=== PATIENT | female | born 1995 | race Caucasian/White ===

== ENCOUNTER → 2018-02-18 09:02 | Outpatient (CLI) | payer MEDICAID, SELFPAY ==
[2018-02-18 10:15] LABS: HCT 30.4 % (36.0-46.0); HGB 10.3 g/dL (12.0-15.5); Mean Corp. HGB Concentration 33.9 g/dL (32.0-36.0); Mean Corpuscular Hemoglobin 32.4 pg (27.0-33.0); Mean Corpuscular Volume 95.6 fL (80-95); Mean Platelet Volume 9.7 fL (8.0-11.0); Platelet Count 218 x1000/uL (130-400); RBC 3.18 m/cumm (4.00-5.20); RBC Distribution Width 12.7 % (11.7-14.6)
[2018-02-18 10:23] LABS: Glucose,1 Hr (Glucola) 84 mg/dL (80-140)
== END ==
PROVIDERS: Visit Provider Advanced Practice Midwife
DX: Z3A.28 28 weeks gestation of pregnancy (principal)
CPT/HCPCS: 36415; 82950; 85027

== ENCOUNTER → 2018-03-04 01:45 | Outpatient (CLI) | payer MEDICAID, SELFPAY ==
--- NOTE | 2018-03-04 10:16 | DI.REPORT_ITS ---
SYMPTOM/DIAGNOSIS: Z34.93 SIZE INCONSISTENT WITH DATES OB ULTRASOUND: Comparison is made with 21 January 2018. The fetus is in breech position. The placenta is anterior. The biometric measurements correspond to 30 weeks 6 days consistent with previous dating. The estimated weight is 1624 grams, corresponding to the 37th percentile. The amniotic fluid index appears normal at 11.6 IMPRESSION: size and weight are within normal limits. Many abnormalities cannot be diagnosed. A normal exam does not exclude a congenital anomaly. Radiology No. [id number] LMP: Exam Date:03/04/18 [facility] wks days on EDC ([facility]) 05/08/18 Confirmed: HISTORY: SIZE LESS THAN DATES ---- PREDICTED GESTATIONAL AGE NUMBER 31- weeks with a range of 30- week to 32- weeks. 1 Determined by_XX__1STUS___LMP___HISTORY Info. pertaining to fetus # PLACENTA PRESENTATION Grade II Cephalic___ Anterior_X__Posterior___ Breech__X__ Right Left Transverse(head right___ Fundal___Low-lying___Previa___ Transverse(head left___ Varying BIOMETRY AMNIOTIC FLUID BPD: 77mm 30 +5 weeks Normal HC: 288 mm 31 +4 weeks AC: 265 mm 30 +4 weeks FL:59 mm 30 +4 weeks AMNIOTIC FLUID INDEX >26 WK CRL: mm weeks Cisterna Magna: mm CI: 80 RUQ:_2.7 LUQ____3.8____ Cerebellum: cm EFW: 56584 grams 37% Percentile RLQ:_1.5 LLQ__3.6 Total:__11.6__cms Composite AGE= 30 +6 wks EDC by US___05/07/18 BIOPHYSICAL PROFILE ANATOMY IDENTIFIED SCORE 0/2 Heart: 4-Chamber___Rate:BPM_150____ LVOT: RVOT: Amniotic Fluid(>2cms)____ Stomach: Kidneys: Respirations (>30 secs) Bladder: Post. Fossa: Body Flex/Extension 3 vessel cord: Ventricles: cord insertion: Lips:____ Extremity Flex/Extension spinal morphology: Nose: Total Score= Palate: NS=not seen
== END ==
PROVIDERS: Visit Provider Advanced Practice Midwife
DX: O26.843 Uterine size-date discrepancy, third trimester (principal); Z34.93 Encounter for supervision of normal pregnancy, unspecified, third trimester
CPT/HCPCS: 76816

== ENCOUNTER 2018-03-25 01:00 | Outpatient (CLI) | payer MEDICAID, SELFPAY ==
--- NOTE | 2018-03-25 10:53 | DI.US_ITS ---
Many abnormalities cannot be diagnosed. A normal exam does not exclude a congenital anomaly. Radiology No. LMP: Exam Date: [facility] wks days on EDC ([facility]) 05/08/18 Confirmed: HISTORY: UTERINE SIZE DISCREPANCY, 026.843 ---- PREDICTED GESTATIONAL AGE NUMBER 33.5 weeks with a range of 32.5 week to 34.5 weeks. 1 Determined by_X__1STUS___LMP___HISTORY Info. pertaining to fetus # PLACENTA PRESENTATION Grade II Cephalic__X_ Anterior__X_Posterior___ Breech____ Right Left Transverse(head right___ Fundal___Low-lying___Previa___ Transverse(head left___ Varying BIOMETRY AMNIOTIC FLUID BPD: 86 mm 34.3 weeks Normal HC: 308 mm 34.2 weeks AC: 293 mm 33.2 weeks FL: 64 mm 33.1 weeks AMNIOTIC FLUID INDEX >26 WK CRL: mm weeks Cisterna Magna: mm CI: 82 RUQ:__6.43____LUQ__4.43 Cerebellum: cm EFW: 2204 grams 35TH Percentile RLQ:__2.18____LLQ__2L81____ Total:____16.3____cms Composite AGE= 33.6 wks EDC by US___05/07/18 BIOPHYSICAL PROFILE ANATOMY IDENTIFIED SCORE 0/2 Heart: 4-Chamber__X_Rate:BPM__136___ LVOT: RVOT: Amniotic Fluid(>2cms)____ Stomach: X__ Kidneys:____X___ Respirations (>30 secs) Bladder: X___ Post. Fossa: Body Flex/Extension 3 vessel cord: Ventricles: cord insertion: Lips:____ Extremity Flex/Extension spinal morphology: Nose: Total Score= Palate: NS=not seen Comparison is made with 03/04/18. The fetus is in cephalic position. The placenta is anterior. The biometric measurements correspond to 33 weeks 6 days , consistent with previous dating. The estimated weight is 2204 grams corresponding to the 35th percentile. The placenta is not significantly changed from the previous exam. The amniotic fluid index appears normal at 16.3. IMPRESSION: size and weight are within normal limits for dates.
== END 2018-03-25 01:20 ==
PROVIDERS: Visit Provider Advanced Practice Midwife
DX: O26.843 Uterine size-date discrepancy, third trimester (principal); Z34.83 Encounter for supervision of other normal pregnancy, third trimester
CPT/HCPCS: 76816

== ENCOUNTER 2018-04-09 14:47 | Outpatient (REF) | payer MEDICAID, SELFPAY | END 2018-04-09 15:07 | LOC: LBN 14:47 | PROVIDERS: PCP Nurse Practitioner Adult Health; Visit Provider Advanced Practice Midwife | DX: Z34.93 Encounter for supervision of normal pregnancy, unspecified, third trimester (principal); Z36.85 Encounter for antenatal screening for Streptococcus B | CPT/HCPCS: 87081 ==

== ENCOUNTER 2018-04-15 11:18 | Observation (INO) | payer MEDICAID, SELFPAY | END 2018-04-15 11:47 | LOC: OBS 11:32 | PROVIDERS: Admitting Provider Midwife; PCP Nurse Practitioner Adult Health; Visit Provider Midwife | DX: R69 Illness, unspecified (principal) ==

== ENCOUNTER 2018-04-15 11:18 | Inpatient (IN) | payer MEDICAID, SELFPAY ==
[2018-04-15 12:50] LABS: HCT 32.7 % (36.0-46.0); HGB 11.3 g/dL (12.0-15.5); Mean Corp. HGB Concentration 34.6 g/dL (32.0-36.0); Mean Corpuscular Hemoglobin 33.1 pg (27.0-33.0); Mean Corpuscular Volume 95.9 fL (80-95); Mean Platelet Volume 9.9 fL (8.0-11.0); Platelet Count 228 x1000/uL (130-400); RBC 3.41 m/cumm (4.00-5.20); RBC Distribution Width 13.3 % (11.7-14.6); White Blood Cell Count 13.05 k/cumm (4.4-10.8)
[2018-04-15] MEDS: Normal Saline Flush 10 ML SYR IVP (14:03)
[2018-04-15] MEDS: Hamamelis Leaf/Glycerin 100 EACH BOX PR (18:57)
[2018-04-15] MEDS: Ibuprofen 600 MG TAB PO (19:45)
[2018-04-15] MEDS: Acetaminophen 325 MG TAB 650 MG PO (19:46)
[2018-04-16] MEDS: Acetaminophen 325 MG TAB 650 MG PO ×3 (06:43→20:29)
[2018-04-16] MEDS: Ibuprofen 600 MG TAB PO ×2 (06:44→20:30)
[2018-04-16 07:24] LABS: HCT 30.8 % (36.0-46.0); HGB 10.4 g/dL (12.0-15.5); Mean Corp. HGB Concentration 33.8 g/dL (32.0-36.0); Mean Corpuscular Hemoglobin 32.6 pg (27.0-33.0); Mean Corpuscular Volume 96.6 fL (80-95); Mean Platelet Volume 10.3 fL (8.0-11.0); Platelet Count 213 x1000/uL (130-400); RBC 3.19 m/cumm (4.00-5.20); RBC Distribution Width 13.1 % (11.7-14.6); White Blood Cell Count 10.19 k/cumm (4.4-10.8)
[2018-04-17] MEDS: Acetaminophen 325 MG TAB 650 MG PO ×2 (13:45→21:45)
[2018-04-18] MEDS: Ibuprofen 600 MG TAB (16:41)
== END 2018-04-18 16:45 | disposition home or self-care (01) | DRG 806 ==
PROVIDERS: Admitting Provider Midwife; PCP Nurse Practitioner Adult Health; Visit Provider Midwife
DX: O60.14X0 Preterm labor third trimester with preterm delivery third trimester, not applicable or unspecified (principal); O99.324 Drug use complicating childbirth; Z37.0 Single live birth; Z3A.36 36 weeks gestation of pregnancy; Z62.21 Child in welfare custody; Z62.810 Personal history of physical and sexual abuse in childhood; O99.334 Smoking (tobacco) complicating childbirth; F17.210 Nicotine dependence, cigarettes, uncomplicated; F12.90 Cannabis use, unspecified, uncomplicated; O99.344 Other mental disorders complicating childbirth; F32.9 Major depressive disorder, single episode, unspecified; Z75.2 Other waiting period for investigation and treatment; Z23 Encounter for immunization
CPT/HCPCS: 36415; 85027; 86850; 86900; 86901

== ENCOUNTER 2018-05-27 15:55 | Outpatient (REF) | payer MEDICAID, SELFPAY ==
--- NOTE | 2018-05-27 14:00 | PAPFT_PTH ---
PATIENT: Fadia Meeks LOC: [facility] U#:[id number] AGE/SX: 23/F ROOM: RE05/27/[address]: Jenna Richardson MD : 1995 BED: DIS: 05/27/2018 SPEC #: [id number] RECD: 05/27/18 17:33 STATUS: CLAUDIA REElisabeth #: [id number] PIPO: 05/27/18 14:[address]: Jenna Richardson DEPT: [facility] Cytology RECD BY: Olivia Page ENTERED: 05/27/18 17:34 SP TYPE: PAPFT K[place]LEY DR: Nilsa Villalpando APRN Tissues: 1 - CX/ENDOCX FOR PAP SMEARS Procedures: PAP THIN PREP/UVM Screening HPV DNA PROBE Comments: [id number]
== END 2018-05-27 16:15 ==
LOC: LBN 15:55
PROVIDERS: PCP Nurse Practitioner Adult Health; Visit Provider Obstetrics & Gynecology
DX: Z12.4 Encounter for screening for malignant neoplasm of cervix (principal)
CPT/HCPCS: 88142; 87624

== ENCOUNTER 2018-07-18 11:12 | Outpatient (CLI) | payer MEDICAID, SELFPAY ==
[2018-07-18 12:07] LABS: HCT 35.3 % (36.0-46.0); HGB 11.8 g/dL (12.0-15.5)
[2018-07-18 14:20] LABS: HCG Qual (Serum) Negative
== END 2018-07-18 11:32 ==
PROVIDERS: Visit Provider Obstetrics & Gynecology
DX: Z30.2 Encounter for sterilization (principal); Z01.818 Encounter for other preprocedural examination
CPT/HCPCS: 36415; 86850; 86900; 86901; 84703; 85014; 85018

== ENCOUNTER 2018-07-24 12:03 | Day surgery (SDC) | payer MEDICAID, SELFPAY ==
[2018-07-24] VITALS (7 sets, daily range): BP systolic 107–127; BP diastolic 58–78; PULSE 75–85; RESP 11–18; TEMP 35.8–36.8; O2SAT 100
[2018-07-24] MEDS: Lactated Ringers 1,000 ML 125 ML IV ×2 (12:46→14:36)
[2018-07-24] MEDS: Bupivacaine 0.25% Pres-Free 30 ML VIAL (14:03)
[2018-07-24] MEDS: fentaNYL 100 MCG/2 ML VIAL IVP ×2 (14:20→14:30)
--- NOTE | 2018-07-24 16:29 | ROE_ITS ---
DATE OF PROCEDURE: July 24, 2018 PREOPERATIVE DIAGNOSIS: Desires permanent sterilization. POSTOPERATIVE DIAGNOSIS: Desired permanent sterilization. PROCEDURE: Laparoscopic-assisted bilateral tubal ligation with Falope Rings. SURGEON: Jenna Richardson M.D. FINAL CANOE INSPECTOR: Prema Aguirre M.D. ANESTHESIA: General. COMPLICATIONS: None. ESTIMATED BLOOD LOSS: <10 cc URINE OUTPUT: <10 cc INTRAOPERATIVE FLUIDS: 750 cc of LR. FINDINGS: Bilateral ligated tubes with Falope Rings at end of procedure. She had normal ovaries kogn aterally, normal uterus, normal liver and gallbladder. PROCEDURE: The patient was taken to the Operating Room where she was properly identified. She was t hen placed on the operating table in the dorsal supine position and general anesthesia was induced wi thout difficulty. She was then placed in the dorsal lithotomy position and prepped and draped in a n ormal sterile fashion. A formal time-out procedure was then performed confirming patient and procedu re. Attention was then turned draining the bladder with a 16 [place]ian catheter. There was a minimal amount of urine output as the patient had urinated prior to coming into the Operating Room. A bivalve speculum was placed. The cervix was visualized and grasped on the anterior lip with a sing le-tooth tenaculum and the uterine manipulator was advanced without difficulty. The surgeon changed her gloves and attention was then turned to the abdomen where an infraumbilical i njection of quarter-strength Marcaine plain was made. A 5-mm incision was made intra-umbilically. A Veress needle was placed into the intraperitoneal cavity which was confirmed by a fluid-filled syrin ge and a drop in pressure. The abdomen was then insufflated with CO2 gas. The Veress needle was rem nimesh and a 5-mm port was advanced under direct visualization. A second 12-mm port was placed suprapu bically by first identifying the bladder which was well away from the port site. Approximately 2 cm above the symphysis pubis the area was injected with quarter-strength Marcaine. A 12-mm subcuticular incision was made and a 12-mm port was advanced under direct visualization. Thorough inspection of the pelvis ensued with the above findings. The left tube was identified, followed out to the fimbria baylee end, and approximately 3 cm from the cornual region the Falope Ring was advanced circumferentiall y around the tube without difficulty. Hemostasis was confirmed. The applicator was reloaded and att ention was then turned to the right fallopian tube. Again it was identified by following out to the fimbriated end. Approximately 3 cm from the cornual region the tube was grasped with pickups and the Falope Ring advanced circumferentially around the tube without difficulty. Hemostasis was reestabli shed and the abdomen was desufflated of CO2 gas. The ports were removed. The 12-mm suprapubic fascia was closed with #0 Vicryl in a adbegm-ab-ubodh fashion and the skin was c losed with #4-0 Vicryl and 3 interrupted sutures of #4-0 Vicryl. The infraumbilical 5-mm incision wa s closed with #4-0 Vicryl in a subcuticular fashion. The Durofix glue was applied to both the incisi ons and then a wide Steri-Strip was applied as well. Sponge, lap, needle, and instrument count were correct x2. The patient was taken to the Recovery Room in stable condition.
== END 2018-07-24 16:20 | disposition home or self-care (01) ==
PROVIDERS: Visit Provider Obstetrics & Gynecology
PROC: (CPT 58670; principal; 2018-07-24 13:00)
DX: Z30.2 Encounter for sterilization (principal); F17.210 Nicotine dependence, cigarettes, uncomplicated
CPT/HCPCS: 58671; J0131; J1100; J1885; J2405; J3010

== ENCOUNTER 2018-08-25 09:24 | Emergency (ER) | payer MEDICAID, SELFPAY ==
[2018-08-25 09:27] VITALS: BP 104/57; PULSE 100; RESP 20; TEMP 36.5; O2SAT 100
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
== END 2018-08-25 09:48 | disposition home or self-care (01) ==
PROVIDERS: Emergency Provider Emergency Medicine
DX: H66.92 Otitis media, unspecified, left ear (principal); F17.210 Nicotine dependence, cigarettes, uncomplicated
CPT/HCPCS: 99283

== ENCOUNTER 2018-09-18 16:39 | Outpatient (CLI) | payer MEDICAID, SELFPAY ==
[2018-09-18 18:25] LABS: HCG Quant, Pregnancy 798 mIU/mL (1-3)
== END 2018-09-18 16:59 ==
PROVIDERS: Visit Provider Obstetrics & Gynecology
DX: Z32.01 Encounter for pregnancy test, result positive (principal)
CPT/HCPCS: 36415; 84702

== ENCOUNTER 2018-09-22 08:36 | Outpatient (CLI) | payer MEDICAID, SELFPAY ==
[2018-09-22 10:56] LABS: HCG Qual (Serum) Positive
[2018-09-22 13:55] LABS: HCG Quant, Pregnancy 3510 mIU/mL (1-3)
== END 2018-09-22 08:56 ==
PROVIDERS: Visit Provider Obstetrics & Gynecology
DX: Z32.01 Encounter for pregnancy test, result positive (principal); Z98.51 Tubal ligation status
CPT/HCPCS: 36415; 84702; 84703

== ENCOUNTER 2018-09-22 17:05 | Outpatient (CLI) | payer MEDICAID, SELFPAY ==
--- NOTE | 2018-09-22 15:00 | DI.US_ITS ---
SYMPTOMS/DIAGNOSIS: AND TUBAL LIGATION, Z98.51 OBSTETRICAL ULTRASOUND: Many abnormalities cannot be diagnosed. A normal exam does not exclude a congenital anomaly. Radiology No. [id number] LMP: Exam Date: 09/22/18 [facility] wks days on EDC ([facility]) Confirmed: HISTORY: PREDICTED GESTATIONAL AGE NUMBER weeks with a range of week to weeks. 1 2 3 Multiple Determined by___1STUS___LMP___HISTORY Info. pertaining to fetus # PLACENTA PRESENTATION Grade Cephalic___ Anterior___Posterior___ Breech____ Right Left Transverse(head right___ Fundal___Low-lying___Previa___ Transverse(head left___ Varying BIOMETRY AMNIOTIC FLUID BPD: mm weeks Normal HC: mm weeks Oligo Polyhydramnios AC: mm weeks FL: mm weeks AMNIOTIC FLUID INDEX >26 WK CRL: mm weeks Cisterna Magna: mm CI: RUQ: LUQ Cerebellum: cm EFW: grams Percentile RLQ: LLQ Total: cms Composite AGE= 5+2 wks EDC by US: 05/23/19 BIOPHYSICAL PROFILE ANATOMY IDENTIFIED SCORE 0/2 Heart: 4-Chamber___Rate:BPM LVOT: RVOT: Amniotic Fluid(>2cms)____ Stomach: Kidneys: Respirations (>30 secs) Bladder: Post. Fossa: Body Flex/Extension 3 vessel cord: Ventricles: cord insertion: Lips:____ Extremity Flex/Extension spinal morphology: Nose: Total Score= Palate: NS=not seen COMMENTS: There is a single intrauterine gestational sac present. Estimated gestational age based on sac diameter is 5 weeks 2 days. The yolk sac was visualized. pole was not visualized at this time. There is a 1.7 cm complex cyst on the left ovary and a 1.1 cm complex cyst on the right ovary. Blood flow is seen to both ovaries. No evidence of torsion is seen. There is a small amount of free fluid in the pelvis. There does appear to be a 2.2 x 1.2 x 0.9 cm fluid collection in the left adnexa. This may represent an ovarian cyst; paraovarian cyst or hydrosalpinx cannot be excluded. No internal soft tissue or abnormal blood flow is seen. IMPRESSION: Single intrauterine gestational sac. Yolk sac is visualized. Estimated gestational age based on gestational sac diameter is 5 weeks 2 days. Followup is recommended to document a viable and for visualization of the pole.
== END 2018-09-22 17:25 ==
PROVIDERS: Visit Provider Obstetrics & Gynecology
DX: Z34.91 Encounter for supervision of normal pregnancy, unspecified, first trimester (principal); N83.291 Other ovarian cyst, right side; N83.292 Other ovarian cyst, left side; Z98.51 Tubal ligation status
CPT/HCPCS: 76801

== ENCOUNTER 2018-10-07 00:57 | Outpatient (CLI) | payer MEDICAID, SELFPAY ==
--- NOTE | 2018-10-07 11:09 | DI.US_ITS ---
SYMPTOMS/DIAGNOSIS: CONFIRM DATES OF , F/U FROM 09/22/18, Z34.90, H/O TUBAL LIGATION OB ULTRASOUND: Many abnormalities cannot be diagnosed. A normal exam does not exclude a congenital anomaly. Radiology No. [id number] LMP: Exam Date: 10/07/18 [facility] wks days on EDC ([facility]) Confirmed: HISTORY: PREDICTED GESTATIONAL AGE NUMBER weeks with a range of week to weeks. 1 Determined by___1STUS___LMP___HISTORY PLACENTA PRESENTATION Grade Cephalic___ Anterior___Posterior___ Breech____ Right Left Transverse(head right___ Fundal___Low-lying___Previa___ Transverse(head left___ Varying BIOMETRY AMNIOTIC FLUID BPD: mm weeks Normal HC: mm weeks Oligo Polyhydramnios AC: mm weeks FL: mm weeks AMNIOTIC FLUID INDEX >26 WK CRL: 11 mm 7+1 weeks Cisterna Magna: mm CI: RUQ: LUQ Cerebellum: cm EFW: grams Percentile RLQ: LLQ Total: cms Composite AGE= 7+1 wks EDC by US: 05/25/19 BIOPHYSICAL PROFILE ANATOMY IDENTIFIED SCORE 0/2 Heart: 4-Chamber___Rate:BPM 133 LVOT: RVOT: Amniotic Fluid(>2cms)____ Stomach: Kidneys: Respirations (>30 secs) Bladder: Post. Fossa: Body Flex/Extension 3 vessel cord: Ventricles: cord insertion: Lips:____ Extremity Flex/Extension spinal morphology: Nose: Total Score= Palate: NS=not seen COMMENTS: OB ultrasound was performed utilizing first trimester protocol. There is a single viable intrauterine gestation with crown-rump length measurements consistent with gestational age of 7 weeks 1 day and an EDC of 05/25/2019. cardiac activity was noted at a rate of 133 bpm. There is an apparent left ovarian corpus luteum noted. There is a tiny quantity of subchorionic fluid noted.
== END 2018-10-07 01:17 ==
PROVIDERS: Visit Provider Obstetrics & Gynecology
DX: Z34.91 Encounter for supervision of normal pregnancy, unspecified, first trimester (principal); N83.12 Corpus luteum cyst of left ovary; Z98.51 Tubal ligation status
CPT/HCPCS: 76801

== ENCOUNTER 2018-10-07 15:09 | Outpatient (REF) | payer MEDICAID, SELFPAY ==
[2018-10-07 19:20] LABS: *AMPHETAMINES SCREEN URINE Negative (Negative); *BARBITURATES SCREEN URINE Negative (Negative); *BENZODIAZEPINES SCREEN URINE Negative (Negative); Cannabinoids THC Negative (Negative); Cocaine Screen,Urine Negative (Negative); METHADONE URINE SCREEN Negative (Negative); OPIATES URINE SCREEN Negative (Negative)
[2018-10-07 19:25] LABS: Tricyclic Antidepressants Negative (Negative)
[2018-10-09 14:50] LABS: Chlamydia Result Negative; GC Result Negative; Specimen Description CERVIX
[2018-10-11 11:49] LABS: Buprenorphine Negative; Norbuprenorphine Negative
== END 2018-10-07 15:29 ==
LOC: LBN 15:09
PROVIDERS: Visit Provider Advanced Practice Midwife
DX: Z34.91 Encounter for supervision of normal pregnancy, unspecified, first trimester (principal); N89.8 Other specified noninflammatory disorders of vagina; Z11.3 Encounter for screening for infections with a predominantly sexual mode of transmission
CPT/HCPCS: 80307; 87491; 87591; 87086; 87480; 87510; 87660

== ENCOUNTER 2018-10-27 10:38 | Emergency (ER) | payer MEDICAID, SELFPAY ==
[2018-10-27 10:52] VITALS: BP 95/42; PULSE 90; RESP 14; TEMP 36.9; O2SAT 100
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
== END 2018-10-27 11:20 | disposition home or self-care (01) ==
LOC: ER 11:17
PROVIDERS: Emergency Provider Student in an Organized Health Care Education/Training Program
DX: M26.601 Right temporomandibular joint disorder, unspecified (principal); Z33.1 Pregnant state, incidental; Z3A.10 10 weeks gestation of pregnancy; O99.331 Smoking (tobacco) complicating pregnancy, first trimester; F17.210 Nicotine dependence, cigarettes, uncomplicated
CPT/HCPCS: 99282

== ENCOUNTER 2018-12-22 01:21 | Outpatient (CLI) | payer MEDICAID, SELFPAY ==
--- NOTE | 2018-12-22 11:00 | DI.US_ITS ---
SYMPTOMS/DIAGNOSIS: 18-WEEK ANATOMY SURVEY, Z34.90 OBSTETRICAL ULTRASOUND: Predicted Gestational Age: Indication/History: 18 Wks Range: 17 to 19 Prior US done on: Determined by: X First US LMP History EDC by prior US: 05/25/19 For multiple gestations: Baby PLACENTA: Grade: I Location: X Anterior Posterior PRESENTATION: RT LT LOW LYING PREVIA X Cephalic Trans (Head RT LT ) Varied Breech BIOMETRY: Anatomy Identified: BPD: 42 mm 18+4 wks 4 chamber Heart Heart Rate 137 BPM HC: 155 mm 18+3 wks LVOT X Post Fossa X AC: 132 mm 18+5 wks RVOT X Ventricles X FL: 27 mm 18+1 wks Stomach X Nose X Bladder X Lips X Cisterna Magna: 2.3 mm CI: 84 Kidneys X Palate X Cerebellum: 1.84 cm 3 vessel cord X Spine X EFW: 240 grms 73% Cord Insertion X NS= not seen Composite Age (US) 18+3 wks Many abnormalities cannot be diagnosed. A normal exam does not exclude congenital abnormality. EDC by US: 05/22/19 Amniotic Fluid Index: Normal COMMENTS: 0 POUNDS 8 OUNCES RUQ: LUQ: RLQ: LLQ: Total: cm Biophysical Profile: Score 0/2 PAULA (>2cm) Respirations (>30 sec) Body flexion/extension Extremity flexion/extension TOTAL SCORE Routine examination was performed. There is a single living intrauterine gestation. Estimated sonographic age is 18 weeks 3 days. No or placental abnormalities are identified. heart rate is 137 beats per minute.
== END 2018-12-22 01:41 ==
PROVIDERS: Visit Provider Advanced Practice Midwife
DX: Z34.92 Encounter for supervision of normal pregnancy, unspecified, second trimester (principal)
CPT/HCPCS: 76805

== ENCOUNTER 2019-01-13 18:26 | Emergency (ER) | payer MEDICAID, SELFPAY ==
[2019-01-13 18:31] VITALS: BP 95/55; PULSE 104; RESP 16; TEMP 36.8; O2SAT 97
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
== END 2019-01-13 19:40 | disposition home or self-care (01) ==
PROVIDERS: Emergency Provider Physician Assistant
DX: O99.712 Diseases of the skin and subcutaneous tissue complicating pregnancy, second trimester (principal); L72.9 Follicular cyst of the skin and subcutaneous tissue, unspecified; Z3A.22 22 weeks gestation of pregnancy
CPT/HCPCS: 99282

== ENCOUNTER 2019-01-22 19:18 | Emergency (ER) | payer MEDICAID, SELFPAY ==
[2019-01-22 19:20] VITALS: BP 91/66; PULSE 106; RESP 16; TEMP 36.7; O2SAT 98
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
[2019-01-22 20:05] LABS: Clarity Clear (Clear)
[2019-01-22 20:13] LABS: Bacteria Rare HPF (Negative); C & S Indicated? No; Casts Negative LPF (Negative); Crystals Negative HPF (Negative); Epithelial Cells Negative HPF (Negative); Mucus Negative (Negative); Other Cells Negative (Negative); RBC 0-2 (0-2); WBC 0-2 HPF (0-5)
[2019-01-22] MEDS: MacroBID 100 MG CAP PO (20:36)
[2019-01-22 20:40] VITALS: BP 94/68; PULSE 106; RESP 16; TEMP 36.7; O2SAT 98
== END 2019-01-22 20:40 | disposition home or self-care (01) ==
PROVIDERS: Emergency Provider Emergency Medicine
DX: O23.42 Unspecified infection of urinary tract in pregnancy, second trimester (principal); R30.0 Dysuria; Z3A.22 22 weeks gestation of pregnancy; O99.332 Smoking (tobacco) complicating pregnancy, second trimester
CPT/HCPCS: 99284; 81003; 81015; 87086; 99283

== ENCOUNTER 2019-02-25 03:48 | Outpatient (CLI) | payer MEDICAID, SELFPAY ==
--- NOTE | 2019-02-25 10:46 | DI.US_ITS ---
SYMPTOMS/DIAGNOSIS: SIZE < DATES IN SECOND TRIMESTER, O26.842 OB ULTRASOUND: Predicted Gestational Age: Indication/History: 27+2 Wks Range: 26+2 to 28+2 Prior US done on: Determined by: First US LMP History EDC by prior US: 05/25/19 For multiple gestations: Baby PLACENTA: Grade: I Location: X Anterior Posterior PRESENTATION: RT LT LOW LYING PREVIA Cephalic X Trans (Head RT LT ) Varied Breech BIOMETRY: Anatomy Identified: BPD: 72 mm 28+5 wks 4 chamber Heart Heart Rate 143 BPM HC: 262 mm 28+4 wks LVOT Post Fossa AC: 225 mm 26+6 wks RVOT Ventricles FL: 51 mm 27+2 wks Stomach Nose Bladder Lips Cisterna Magna: mm CI: 85 Kidneys Palate Cerebellum: cm 3 vessel cord Spine EFW: 1053 grms 37% Cord Insertion NS= not seen Composite Age (US) 27+6 wks Many abnormalities cannot be diagnosed. A normal exam does not exclude congenital abnormality. EDC by US: 05/21/19 Amniotic Fluid Index: Normal COMMENTS: RUQ: 3.15 LUQ: 0.00 RLQ: 2.82 LLQ: 3.68 Total: 9.7 cm Biophysical Profile: Score 0/2 PAULA (>2cm) Respirations (>30 sec) Body flexion/extension Extremity flexion/extension TOTAL SCORE RADIOLOGIST COMMENTS: Comparison is made with December,. The fetus was in cephalic position. The placenta is anterior. The biometric measurements correspond to 27 weeks 6 days and an EDC of May,. This is consistent with dating on the previous exam. The estimated weight is 1053 g, corresponding to the 37th percentile. The amniotic fluid index appears normal at 9.7 cm. IMPRESSION: size and weight are within the normal range.
[2019-02-25 11:05] LABS: Glucose,1 Hr (Glucola) 89 mg/dL (80-140)
== END 2019-02-25 04:08 ==
PROVIDERS: Visit Provider Advanced Practice Midwife
DX: Z34.90 Encounter for supervision of normal pregnancy, unspecified, unspecified trimester (principal); O26.842 Uterine size-date discrepancy, second trimester
CPT/HCPCS: 36415; 76816; 82950

== ENCOUNTER 2019-03-12 10:58 | Outpatient (CLI) | payer MEDICAID, SELFPAY ==
[2019-03-12 11:36] LABS: Abs Immature Grans 0.05 k/cumm (0.0-0.09); Absolute Basophil Count 0.02 k/cumm (0.0-0.2); Absolute Eosinophil Count 0.16 k/cumm (0.0-0.7); Absolute Lymphocyte Count 1.85 k/cumm (1.2-3.4); Absolute Monocyte Count 0.43 k/cumm (0.11-0.7); Absolute Neutrophil Count 8.78 k/cumm (1.2-6.7); Basophils % 0.2; Eosinophils % 1.4; HCT 35.1 % (36.0-46.0); HGB 11.9 g/dL (12.0-15.5); Immature Grans % 0.4; Lymphocytes % 16.4; Mean Corp. HGB Concentration 33.9 g/dL (32.0-36.0); Mean Corpuscular Hemoglobin 32.2 pg (27.0-33.0); Mean Corpuscular Volume 94.9 fL (80-95); Mean Platelet Volume 10.1 fL (8.0-11.0); Monocytes % 3.8; Neutrophils % 77.8; Platelet Count 256 x1000/uL (130-400); RBC Distribution Width 12.8 % (11.7-14.6); White Blood Cell Count 11.29 k/cumm (4.4-10.8)
[2019-03-13 09:36] LABS: HIV-1/2 Ag & Ab Screen Negative (NEGAT)
[2019-03-13 11:09] LABS: Hepatitis B Surface Ag Negative (NEGAT); Hepatitis C Ab w Rflx HCV PCR Negative (NEGAT)
[2019-03-13 11:29] LABS: Syphilis Serology (RPR) Negative (Negative); Varicella IgG Antibody Negative
[2019-03-13 11:42] LABS: Rubella IgG Ab (UVM) Positive
== END 2019-03-12 11:18 ==
PROVIDERS: Visit Provider Advanced Practice Midwife
DX: Z34.93 Encounter for supervision of normal pregnancy, unspecified, third trimester (principal); N89.8 Other specified noninflammatory disorders of vagina
CPT/HCPCS: 36415; 80055; 86787; 86803; 87340; 87389; 84443; 86592; 86762; 87480; 87510; 87660

== ENCOUNTER 2019-03-12 18:20 | Emergency (ER) | payer MEDICAID, SELFPAY ==
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
== END 2019-03-12 19:26 | disposition home or self-care (01) ==
PROVIDERS: Emergency Provider Nurse Practitioner Family
DX: M25.531 Pain in right wrist (principal)
CPT/HCPCS: 29125; 99283; 99282; L3650; L3908

== ENCOUNTER 2019-03-16 18:20 | Observation (INO) | payer MEDICAID, SELFPAY ==
[2019-03-16 18:31] VITALS: BP 111/64; PULSE 111; RESP 18; TEMP 37; O2SAT 98
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
[2019-03-16 19:15] VITALS: BP 111/64; PULSE 111; RESP 18; O2SAT 98
== END 2019-03-16 20:50 | disposition home or self-care (01) ==
LOC: ER 18:27 → OBS 19:12
PROVIDERS: Admitting Provider Advanced Practice Midwife; Emergency Provider Physician Assistant; Visit Provider Advanced Practice Midwife
DX: O60.03 Preterm labor without delivery, third trimester (principal); O23.593 Infection of other part of genital tract in pregnancy, third trimester; Z3A.30 30 weeks gestation of pregnancy; B96.89 Other specified bacterial agents as the cause of diseases classified elsewhere
CPT/HCPCS: 59025; 99285; 99284

== ENCOUNTER 2019-03-19 03:54 | Outpatient (CLI) | payer MEDICAID, SELFPAY ==
--- NOTE | 2019-03-19 10:29 | DI.US_ITS ---
SYMPTOM/DIAGNOSIS: LOW PRESENTING PART Z34.90 LIMITED OB ULTRASOUND: 03/19 Limited ultrasound was performed for cervical length determination. Estimated cervical length is 3.9 cm. Placenta is anterior and there is no evidence of a placenta previa. Normal quantity of amniotic fluid is noted. Predicted Gestational Age: Indication/History: 30 +3 Wks Range: 29 +3 to 31 +3 Prior US done on: Determined by: First US LMP History EDC by prior US: 05/25/19 For multiple gestations: Baby PLACENTA: Grade: I Location: XX Anterior Posterior PRESENTATION: RT LT LOW LYING PREVIA Cephalic Trans (Head RT LT ) Varied Breech XX BIOMETRY: Anatomy Identified: BPD: mm wks 4 chamber Heart XX Heart Rate 143 BPM HC: mm wks LVOT Post Fossa AC: mm wks RVOT Ventricles FL: mm wks Stomach XX Nose XX Bladder XX Lips XX Cisterna Magna: mm CI: Kidneys XX Palate Cerebellum: mm 3 vessel cord Spine EFW: grms % Cord Insertion NS= not seen Composite Age (US) wks Many abnormalities cannot be diagnosed. A normal exam does not exclude congenital abnormality. EDC by US Amniotic Fluid Index: Normal COMMENTS: RUQ: LUQ: RLQ: LLQ: Total: cm Biophysical Profile: Score 0/2 PAULA (>2cm) Respirations (>30 sec) Body flexion/extension Extremity flexion/extension TOTAL SCORE
== END 2019-03-19 04:14 ==
PROVIDERS: Visit Provider Advanced Practice Midwife
DX: Z34.93 Encounter for supervision of normal pregnancy, unspecified, third trimester (principal); Z36.89 Encounter for other specified antenatal screening
CPT/HCPCS: 76815

== ENCOUNTER 2019-03-25 00:46 | Outpatient (CLI) | payer MEDICAID, SELFPAY ==
--- NOTE | 2019-03-25 10:31 | DI.US_ITS ---
Predicted Gestational Age: Indication/History: SIZE LESS THAN DATES,026.843 31.2 Wks Range: 30.2 to 32.2 Prior US done on: Determined by: First US LMP History EDC by prior US: 05/25/19 For multiple gestations: Baby PLACENTA: Grade: I-II Location: Anterior X Posterior PRESENTATION: RT X LT LOW LYING PREVIA Cephalic X Trans (Head RT LT ) Varied Breech BIOMETRY: Anatomy Identified: BPD: 82 mm 32.6 wks 4 chamber Heart Heart Rate 152 BPM HC: 302 mm 33.3 wks LVOT Post Fossa AC: 256 mm 29.5 wks RVOT Ventricles FL: 59 mm 30.5 wks Stomach Nose Bladder Lips Cisterna Magna: mm CI: 80 Kidneys Palate Cerebellum: mm 3 vessel cord Spine EFW: 1618 grms 20TH % Cord Insertion NS= not seen Composite Age (US) 31.5 wks Many abnormalities cannot be diagnosed. A normal exam does not exclude congenital abnormality. EDC by US 05/22/19 Amniotic Fluid Index: Normal COMMENTS: RUQ: 4.69 LUQ: 2.25 RLQ: 2.55 LLQ: 4.18 Total: 13.7 cm Biophysical Profile: Score 0/2 PAULA (>2cm) Respirations (>30 sec) Body flexion/extension Extremity flexion/extension TOTAL SCORE Comparison is made with 12/22/18. The fetus is in cephalic position. The placenta is anterior. The biometric measurements correspond to 31 weeks 5 days, consistent with the previous exam. The estimated weight is 1618 grams which is near the 20th percentile. The amniotic fluid index is normal at 13.7. IMPRESSION: size and weight as well as amniotic fluid index are within the normal range.
== END 2019-03-25 01:06 ==
PROVIDERS: Visit Provider Advanced Practice Midwife
DX: O26.843 Uterine size-date discrepancy, third trimester (principal)
CPT/HCPCS: 76816

== ENCOUNTER 2019-04-17 00:16 | Outpatient (CLI) | payer MEDICAID, SELFPAY ==
--- NOTE | 2019-04-17 10:33 | DI.US_ITS ---
EXAM: US OB PAULA WEIGHT CLINICAL HISTORY: s<d, serial usgs q 3 weeks, Z34.90. TECHNIQUE: Ultrasound performed using standard protocol. COMPARISON: US OB 2-3 trimester from 03/25/2019 FINDINGS: Ob ultrasound was performed utilizing 3rd trimester protocol. Placenta is anterior with no evidence of placenta previa. biometry is consistent with gestational age of 34 weeks 3 days and an EDC of 05/26/2019. The estimated weight is 2349 grams which is at the 32nd percentile for predict ed gestational age. Fetus is in cephalic presentation. The amniotic fluid index is 16 and there vis ually a normal quantity of amniotic fluid.
== END 2019-04-17 00:36 ==
PROVIDERS: Visit Provider Advanced Practice Midwife
DX: O26.843 Uterine size-date discrepancy, third trimester (principal)
CPT/HCPCS: 76816

== ENCOUNTER 2019-04-17 11:57 | Outpatient (CLI) | payer MEDICAID, SELFPAY | END 2019-04-17 12:17 | PROVIDERS: Visit Provider Advanced Practice Midwife | DX: O26.843 Uterine size-date discrepancy, third trimester (principal); Z3A.34 34 weeks gestation of pregnancy | CPT/HCPCS: 59025 ==

== ENCOUNTER 2019-04-17 14:50 | Outpatient (REF) | payer MEDICAID, SELFPAY | END 2019-04-17 15:10 | LOC: LBN 14:50 | PROVIDERS: Visit Provider Advanced Practice Midwife | DX: Z34.93 Encounter for supervision of normal pregnancy, unspecified, third trimester (principal); Z36.85 Encounter for antenatal screening for Streptococcus B | CPT/HCPCS: 87081 ==

== ENCOUNTER 2019-04-19 21:17 | Inpatient (IN) | payer MEDICAID, SELFPAY ==
[2019-04-19] MEDS: Betamet Acet/Betamet Na Ph Inj. 30 MG/5 ML 12 MG IM (20:32)
[2019-04-19] MEDS: Lactated Ringers 500 ML 1000 ML IV (22:08)
[2019-04-19] MEDS: Penicillin G POT. 5,000,000 UNITS in Normal Saline 100 ML 200 UNITS IVPB (22:44)
[2019-04-19 22:50] LABS: HCT 25.6 % (36.0-46.0); HGB 8.8 g/dL (12.0-15.5); Mean Corp. HGB Concentration 34.4 g/dL (32.0-36.0); Mean Corpuscular Hemoglobin 32.7 pg (27.0-33.0); Mean Corpuscular Volume 95.2 fL (80-95); Mean Platelet Volume 9.7 fL (8.0-11.0); Platelet Count 231 x1000/uL (130-400); RBC 2.69 m/cumm (4.00-5.20); RBC Distribution Width 12.9 % (11.7-14.6); White Blood Cell Count 14.67 k/cumm (4.4-10.8)
[2019-04-19 23:05] LABS: ETHANOL BLOOD < 3.0 mg/dL (<3)
[2019-04-19 23:06] LABS: Bilirubin Negative (Negative); Blood Trace-intact (Negative); Clarity Clear (Clear); Glucose Negative (Negative); Ketones Negative (Negative); Leukocyte Esterase Negative (Negative); Nitrite Negative (Negative); Specific Gravity 1.015 (1.005-1.025); Urobilinogen 0.2 EU/dL (Up TO 0.2)
[2019-04-19 23:09] LABS: Bacteria Negative HPF (Negative); C & S Indicated? No; Casts Negative LPF (Negative); Crystals Negative HPF (Negative); Epithelial Cells Negative HPF (Negative); Mucus Negative (Negative); Other Cells Negative (Negative); RBC 0-2 (0-2); WBC Negative HPF (0-5)
[2019-04-19 23:16] LABS: *AMPHETAMINES SCREEN URINE Negative (Negative); *BARBITURATES SCREEN URINE Negative (Negative); *BENZODIAZEPINES SCREEN URINE Negative (Negative); Cannabinoids THC Negative (Negative); Cocaine Screen,Urine Negative (Negative); METHADONE URINE SCREEN Negative (Negative); OPIATES URINE SCREEN Negative (Negative)
[2019-04-19 23:19] LABS: Tricyclic Antidepressants Negative (Negative)
[2019-04-19] MEDS: Sertraline 25 MG TAB PO (23:37)
[2019-04-20] MEDS: Penicillin G POT. 3,000,000 UNITS in Normal Saline 50 ML 100 UNITS IVPB ×2 (13:08→17:22)
[2019-04-20] MEDS: Lactated Ringers 1,000 ML 125 ML IV (13:13)
--- NOTE | 2019-04-20 20:44 | PLAC_PTH ---
PATIENT: Fadia Meeks LOC: OBS U#:[id number] AGE/SX: 24/F ROOM: OBS.304 RE04/20/[address]: Indiana Andrade CNM : 1995 BED: A DIS: 04/21/2019 SPEC #: [id number] RECD: 04/21/19 12:31 STATUS: CLAUDIA REQ #: [id number] PIPO: 04/20/19 20:[address]: Indiana Andrade DEPT: Surgical Specimen RECD BY: Olivia Page ENTERED: 04/21/19 12:32 SP TYPE: PLAC OTHR DR: None Tissues: 1 - PLACENTA (3RD TRIMESTER) Procedures: IMMUNOPEROXIDASE STAIN GROSS AND MICRO LEVEL 5 Comments: [id number]
[2019-04-20] MEDS: Ibuprofen 600 MG TAB PO (21:56)
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
[2019-04-21] MEDS: Ibuprofen 600 MG TAB PO ×3 (04:48→17:43)
[2019-04-21] MEDS: Lactated Ringers 1,000 ML 125 ML IV (05:21)
[2019-04-21] MEDS: Hamamelis Leaf/Glycerin 100 EACH BOX PR (05:31)
[2019-04-21 11:45] LABS: Abs Immature Grans 0.12 k/cumm (0.0-0.09); Absolute Basophil Count 0.01 k/cumm (0.0-0.2); Absolute Eosinophil Count 0.06 k/cumm (0.0-0.7); Absolute Lymphocyte Count 2.29 k/cumm (1.2-3.4); Absolute Monocyte Count 0.77 k/cumm (0.11-0.7); Absolute Neutrophil Count 8.84 k/cumm (1.2-6.7); Basophils % 0.1; Eosinophils % 0.5; HCT 28.9 % (36.0-46.0); HGB 9.6 g/dL (12.0-15.5); Lymphocytes % 18.9; Mean Corp. HGB Concentration 33.2 g/dL (32.0-36.0); Mean Corpuscular Hemoglobin 31.8 pg (27.0-33.0); Mean Corpuscular Volume 95.7 fL (80-95); Mean Platelet Volume 9.5 fL (8.0-11.0); Monocytes % 6.4; Neutrophils % 73.1; Platelet Count 260 x1000/uL (130-400); RBC 3.02 m/cumm (4.00-5.20); RBC Distribution Width 12.9 % (11.7-14.6); White Blood Cell Count 12.09 k/cumm (4.4-10.8)
[2019-04-21 12:01] LABS: Diff Comment RBC Morph Reviewed; RBC Morphology Normal
[2019-04-21] MEDS: Acetaminophen 325 MG TAB 650 MG PO ×2 (12:05→17:44)
== END 2019-04-21 20:15 | disposition home or self-care (01) | DRG 807 ==
LOC: OBS 21:29
PROVIDERS: Advanced Practice Midwife; Admitting Provider Advanced Practice Midwife; Referring Provider Advanced Practice Midwife; Visit Provider Advanced Practice Midwife
DX: O60.14X0 Preterm labor third trimester with preterm delivery third trimester, not applicable or unspecified (principal); Z37.0 Single live birth; O67.8 Other intrapartum hemorrhage; O62.3 Precipitate labor; O99.344 Other mental disorders complicating childbirth; F32.89 Other specified depressive episodes; Z3A.34 34 weeks gestation of pregnancy; Z98.51 Tubal ligation status
CPT/HCPCS: 36415; 80053; 80307; 85027; 86850; 86900; 86901; 87077; NC; 80320; 81003; 81015; 83735; 84484; 85025; 87070; 87205; 88307; 88361; G0378; J0702; J2540; J3490

== ENCOUNTER 2019-04-26 17:07 | Emergency (ER) | payer MEDICAID, SELFPAY ==
[2019-04-26 17:10] VITALS: BP 109/61; PULSE 85; RESP 16; TEMP 36.7; O2SAT 99
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
== END 2019-04-26 19:31 | disposition home or self-care (01) ==
PROVIDERS: Emergency Provider Physician Assistant
DX: S92.411A Displaced fracture of proximal phalanx of right great toe, initial encounter for closed fracture (principal); W22.8XXA Striking against or struck by other objects, initial encounter
CPT/HCPCS: 28490; 73630; L4361

== ENCOUNTER 2019-06-01 15:08 | Outpatient (REF) | payer MEDICAID, SELFPAY ==
--- NOTE | 2019-06-01 13:20 | PAPFT_PTH ---
PATIENT: Fadia Meeks LOC: [facility] U#:[id number] AGE/SX: 24/F ROOM: RE06/01/[address]: Batool Quiros RN : 1995 BED: DIS: 06/01/2019 SPEC #: [id number] RECD: 06/02/19 12:56 STATUS: CLAUDIA REQ #: [id number] PIPO: 06/01/19 13:[address]: Batool Quiros DEPT: [facility] Cytology RECD BY: Olivia Page ENTERED: 06/02/19 12:56 SP TYPE: PAPFT KINGSLEY DR: Unknown,Unknown Tissues: 1 - CX/ENDOCX FOR PAP SMEARS Procedures: PAP THIN PREP/[facility] Screening Comments: [id number]
== END 2019-06-01 15:28 ==
LOC: LBN 15:08
PROVIDERS: Visit Provider Advanced Practice Midwife
DX: Z12.4 Encounter for screening for malignant neoplasm of cervix (principal)
CPT/HCPCS: 88142

== ENCOUNTER 2019-06-02 13:05 | Outpatient (CLI) | payer MEDICAID, SELFPAY | END 2019-06-02 13:25 | PROVIDERS: Visit Provider Obstetrics & Gynecology | DX: Z01.818 Encounter for other preprocedural examination (principal) ==

== ENCOUNTER 2019-06-02 13:29 | Outpatient (CLI) | payer MEDICAID, SELFPAY ==
[2019-06-02 14:03] LABS: HCT 35.5 % (36.0-46.0); Mean Corp. HGB Concentration 33.8 g/dL (32.0-36.0); Mean Corpuscular Hemoglobin 31.3 pg (27.0-33.0); Mean Corpuscular Volume 92.7 fL (80-95); Mean Platelet Volume 9.3 fL (8.0-11.0); Platelet Count 299 x1000/uL (130-400); RBC 3.83 m/cumm (4.00-5.20); RBC Distribution Width 12.2 % (11.7-14.6); White Blood Cell Count 8.45 k/cumm (4.4-10.8)
== END 2019-06-02 13:49 ==
PROVIDERS: Visit Provider Obstetrics & Gynecology
DX: Z30.2 Encounter for sterilization (principal); Z01.818 Encounter for other preprocedural examination; Z01.812 Encounter for preprocedural laboratory examination
CPT/HCPCS: 36415; 85027; 86850; 86900; 86901

== ENCOUNTER 2019-06-03 06:16 | Day surgery (SDC) | payer MEDICAID, SELFPAY ==
[2019-06-03] VITALS (8 sets, daily range): BP systolic 92–105; BP diastolic 40–61; PULSE 67–100; RESP 15–26; TEMP 37–37.3; O2SAT 96–100
[2019-06-03] MEDS: Lactated Ringers 1,000 ML 125 ML IV ×2 (06:53→08:20)
[2019-06-03] MEDS: Bupivacaine 0.25% Pres-Free 30 ML VIAL (08:41)
--- NOTE | 2019-06-03 08:45 | FALL_PTH ---
PATIENT: Fadia Meeks LOC: [facility] U#:[id number] AGE/SX: 24/F ROOM: RE06/03/[address]: Devin Coleman MD : 1995 BED: DIS: 06/03/2019 SPEC #: [id number] RECD: 06/03/19 12:40 STATUS: CLAUDIA REQ #: [id number] PIPO: 06/03/19 08:[address]: Devin Coleman DEPT: Surgical Specimen RECD BY: Olivia Page ENTERED: 06/03/19 12:41 SP TYPE: Fall OTHR DR: Unknown,Unknown Tissues: 1 - FALLOPIAN TUBE (STERILIZATION) 2 - FALLOPIAN TUBE (STERILIZATION) Procedures: GROSS AND MICRO LEVEL 2 Comments: [id number]
--- NOTE | 2019-06-03 09:27 | W.PM.DSUDISC ---
Discharge Plan Discharge Details Attending Provider: Devin Coleman Primary Care Provider: Unknown,Unknown Home Meds and New Rx's Prescriptions: No Action Fluarix Quad [id number] (PF) 60 mcg (15 mcg x 4)/0.5 mL syringe 0.5 ml IM ONCE Qty: 1 RF: 0 sertraline [Zoloft] 25 mg tablet 25 mg PO DAILY Qty: 30 RF: 1 DS: Diagnosis Discharge Diagnosis (1) Sterilization: Status: Acute
--- NOTE | 2019-06-03 09:27 | W.PM.OP ---
Date of service: 06/03/19 Time of Service: 09:28 Operative Note Operative Note DATE OF PROCEDURE: 06/03/19 PRE-OP DIAGNOSIS: 1. Failed prior tubal sterilization 2. Multiparity and desire for permanent sterilization POST-OP DIAGNOSIS: same PROCEDURE: Laparoscopic bilateral salpingectomy Removal of foreign body SURGEON: Devin Coleman ANESTHESIA: DAVID ESTIMATED BLOOD LOSS: 5 PATHOLOGY: other (Bilateral fallopian tubes) COMPLICATIONS: None Patient was transported to: PACU Patient's condition: other Findings: 1. The right fallopian tube appeared to be intact with a ring implant that did not appear to be a standard Silastic Falope ring adjacent to the tube. 2. The left fallopian tube was intact and no Silastic ring could be identified. Procedure Description: The patient was taken to the operating room and after adequate general anesthesia was obtained the bladder was straight cath for approximately 25 cc of clear urine. The patient was prepped and draped in usual sterile manner. The skin and subcutaneous tissues at the umbilicus were infiltrated with 0.25% Marcaine solution. A small infraumbilical skin incision was then made with a #15 blade scalpel. Sharp dissection was carried down to the underlying layer fascia. The fascia was grasped and elevated with 2 Alexis clamps and incised sharply with scalpel. The peritoneum was entered with a hemostat and S retractors were placed. 2 sutures of 0 Vicryl were placed on either side of the fascial incision. A 10 mm balloon trocar was advanced through the incision. A pneumoperitoneum to approximately 14 mmHg was established. Two 5 mm ports were placed in the right lower and right upper quadrants both under direct visualization. The right fallopian tube was identified first and a black band was noted adhered to the mesosalpinx on that side. The black ban was not recognized to be standard Falope ring and the tube did appear to be intact. Dissection was carried across the mesosalpinx with the LigaSure device. Dissection was carried to the proximal fallopian tube which was transected. The fallopian tube was removed from the abdomen. Attention was then turned to the left side where the fallopian tube was noted to be completely intact. No Falope ring was identified and no black band as the one found on the opposite side was located. Dissection was carried across the mesosalpinx to the proximal fallopian tube which was transected. The fallopian tube was removed from the abdomen. Excellent hemostasis was noted. The 5 mm trochars were removed under direct visualization. The abdomen was desufflated. The 10 mm trocar was removed as well. The fascia at the umbilicus was closed with 2 previously placed sutures of 0 Vicryl. Each incision was closed with interrupted sutures of 4 Monocryl and Dermabond was applied. The procedure was tolerated well. Sponge, lap and needle counts were correct at the conclusion of the procedure and the patient was transferred to PACU stable condition.
[2019-06-03] MEDS: Acetaminophen 500 MG TAB 1000 MG PO (10:08)
== END 2019-06-03 11:20 | disposition home or self-care (01) ==
LOC: SUR 06:16
PROVIDERS: Visit Provider Obstetrics & Gynecology
PROC: (CPT 58661; principal; 2019-06-03 07:30)
DX: Z30.2 Encounter for sterilization (principal); N99.89 Other postprocedural complications and disorders of genitourinary system; F17.210 Nicotine dependence, cigarettes, uncomplicated
CPT/HCPCS: 58661; 88302; J1100; J1885; J2405; J3010

== ENCOUNTER 2020-02-29 13:03 | Outpatient (REF) | payer MEDICAID, SELFPAY ==
[2020-02-29 14:33] LABS: Abs Immature Grans 0.02 10^3/uL (0.0-0.06); Absolute Basophil Count 0.05 10^3/uL (0.0-0.2); Absolute Eosinophil Count 0.32 10^3/uL (0.0-0.7); Absolute Lymphocyte Count 1.82 10^3/uL (1.2-3.4); Absolute Monocyte Count 0.44 10^3/uL (0.1-0.8); Absolute Neutrophil Count 5.79 10^3/uL (1.2-6.7); Basophils % 0.6; Eosinophils % 3.8; HCT 36.4 % (36.0-46.0); HGB 12.1 g/dL (11.2-15.7); Immature Grans % 0.2; Lymphocytes % 21.6; MCH 30.7 pg (27.0-33.0); MCHC 33.2 % (32.0-36.0); MCV 92.4 fL (80-95); MPV 9.8 fL (8.0-11.0); Monocytes % 5.2; Neutrophils % 68.6; Nucleated RBC 0 %; Platelet Count 337 10^3/uL (130-400); RBC 3.94 10^6/uL (3.93-5.22); RDW 12.8 % (11.7-14.6); RDW-SD 43.8 fL; WBC 8.44 10^3/uL (4.4-10.8)
[2020-02-29 14:35] LABS: ALT 32 U/L (14-59); AST 20 U/L (15-37); Alkaline Phosphatase 104 U/L (46-116); Anion Gap 10.1 mmol/L (3-11); BUN 20 mg/dL (7-18); Bilirubin, Total 0.4 mg/dL (0.2-1.0); CO2 24.9 mmol/L (21.0-32.0); CREATININE 0.74 mg/dL (0.55-1.02); Chloride 109 mmol/L (98-107); Glucose 98 mg/dL (74-106); Potassium 3.9 mmol/L (3.5-5.1); Sodium 144 mmol/L (136-145); TSH (W/Ref FT4) 1.07 uIU/mL (0.36-3.74); Total Protein 6.9 g/dL (6.4-8.2); Vitamin B12 365 pg/mL (193-986)
[2020-02-29 14:36] LABS: Folate > 20.0 ng/mL (8.6-20.0)
[2020-03-01 09:59] LABS: Prealbumin 24 mg/dL (20-40); Transferrin 250 mg/dL (201-352)
== END 2020-02-29 13:23 ==
LOC: LBN 13:03
PROVIDERS: PCP Nurse Practitioner; Visit Provider Obstetrics & Gynecology
DX: R63.4 Abnormal weight loss (principal)
CPT/HCPCS: 80053; 82607; 82746; 84134; 84443; 84466; 85025

== ENCOUNTER 2020-06-07 14:53 | Outpatient (REF) | payer MEDICAID, SELFPAY ==
[2020-06-09 06:04] LABS: Chlamydia amplified RNA Negative (Negative); N gonorrhoeae amplified RNA Negative (Negative); Source ENDOCERVIX
== END 2020-06-07 15:13 ==
LOC: LBN 14:53
PROVIDERS: PCP Nurse Practitioner; Visit Provider Obstetrics & Gynecology
DX: N89.8 Other specified noninflammatory disorders of vagina (principal)
CPT/HCPCS: 87491; 87591; 87480; 87510; 87660

== ENCOUNTER 2021-08-22 11:58 | Outpatient (REF) | payer MEDICAID, SELFPAY ==
--- NOTE | 2021-08-22 11:46 | PAPFT_PTH ---
PATIENT: Fadia Meeks LOC: [facility] U#:[id number] AGE/SX: 26/F ROOM: RE08/22/[address]: Sherita Mead, PhD DISASTER RECOVERY ANALYST : 1995 BED: DIS: 08/22/2021 SPEC #: [id number] RECD: 08/22/21 18:09 STATUS: CLAUDIA REElisabeth #: [id number] PIPO: 08/22/21 11:[address]: Sherita Mead DEPT: [facility] Cytology RECD BY: Olivia Page Tissues: 1 - CX/ENDOCX FOR PAP SMEARS Procedures: PAP THIN PREP/[facility] Screening Comments: [id number]
== END 2021-08-22 11:59 | disposition home or self-care (01) ==
LOC: LBN 11:58
PROVIDERS: PCP Nurse Practitioner; Visit Provider Nurse Practitioner
DX: Z12.4 Encounter for screening for malignant neoplasm of cervix (principal)
CPT/HCPCS: 88142

== ENCOUNTER 2021-10-25 03:08 | Outpatient (CLI) | payer MEDICAID, SELFPAY ==
[2021-10-25 09:54] LABS: HCT 37.3 % (36.0-46.0); HGB 12.2 g/dL (11.2-15.7); MCH 31.2 pg (27.0-33.0); MCHC 32.7 % (32.0-36.0); MCV 95.4 fL (80-95); MPV 8.8 fL (8.0-11.0); Platelet Count 266 10^3/uL (130-400); RBC 3.91 10^6/uL (3.93-5.22); RDW 12.6 % (11.7-14.6); RDW-SD 44.5 fL; WBC 6.95 10^3/uL (4.4-10.8)
[2021-10-25 11:10] LABS: TSH (W/Ref FT4) 0.59 uIU/mL (0.36-3.74)
[2021-10-25 11:36] LABS: Calculated LDL 74 mg/dL (<100); Cholesterol 147 mg/dL (<200); HDL Cholesterol 52 mg/dL (40-60); Triglyceride 107 mg/dL (<150)
== END 2021-10-25 03:09 | disposition home or self-care (01) ==
LOC: LBO 03:08
PROVIDERS: PCP Nurse Practitioner; Visit Provider Nurse Practitioner
DX: D64.9 Anemia, unspecified (principal); F41.8 Other specified anxiety disorders; R63.4 Abnormal weight loss; Z13.6 Encounter for screening for cardiovascular disorders
CPT/HCPCS: 36415; 80061; 85027; 84443

== ENCOUNTER 2021-10-28 09:36 | Emergency (ER) | payer MEDICAID, SELFPAY ==
[2021-10-28 09:40] VITALS: BP 128/67; PULSE 70; RESP 16; TEMP 36.8; O2SAT 100
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
--- NOTE | 2021-10-28 09:50 | DI.US_ITS ---
Exam(s) US PELVIS TRANSVAGINAL EXAM: US PELVIS TRANSVAGINAL CLINICAL HISTORY: RLQ pain TECHNIQUE: Ultrasound of the pelvis was performed both transabdominal and transvaginal. COMPARISON: US US OB PAULA WEIGHT from 04/17/2019 FINDINGS: UTERUS: Measures 7 cm length x 4 cm AP x 6 cm wide. There are no uterine fibroids. Endometrial thickness measures 13 mm. There is no fluid in the endometrial canal. CERVIX: There are no obvious nabothian cysts. RIGHT OVARY: Measures 4 x 2.2 x 2.1. cm No significant cysts nor masses evident in the right ovary. LEFT OVARY: Measures 2.9 x 1.5 x 2.2 cm No significant cysts nor masses evident in the left ovary. OTHER: Imaging of the right lower quadrant revealed a tubular structure but this was not demonstrated to be a blind ending tube so cannot confirm appendicitis. If there is significant clinical consider ation for acute appendicitis then recommend CT scan. CUL-DE-SAC: No free fluid evident. IMPRESSION: 1. Normal appearing uterus and age-appropriate endometrium. 2. No abnormal ovarian findings. 3. No free fluid evident in the adnexal regions and cul-de-sac. DATA REPOSITORY:
[2021-10-28 10:01] LABS: Abs Immature Grans 0.03 10^3/uL (0.0-0.06); Absolute Basophil Count 0.03 10^3/uL (0.0-0.2); Absolute Lymphocyte Count 2.45 10^3/uL (1.2-3.4); Absolute Monocyte Count 0.45 10^3/uL (0.1-0.8); Absolute Neutrophil Count 7.32 10^3/uL (1.2-6.7); Basophils % 0.3; Eosinophils % 2.8; HGB 13.1 g/dL (11.2-15.7); Immature Grans % 0.3; Lymphocytes % 23.2; MCH 30.8 pg (27.0-33.0); MCHC 32.8 % (32.0-36.0); MCV 93.9 fL (80-95); MPV 9.1 fL (8.0-11.0); Monocytes % 4.3; Neutrophils % 69.1; Platelet Count 283 10^3/uL (130-400); RBC 4.26 10^6/uL (3.93-5.22); RDW 12.6 % (11.7-14.6); RDW-SD 43.4 fL; WBC 10.58 10^3/uL (4.4-10.8)
[2021-10-28 10:15] LABS: Bilirubin Negative (Negative); Blood Trace-lysed (Negative); Clarity Clear (Clear); Glucose Negative (Negative); Ketones Negative (Negative); Leukocyte Esterase Small (Negative); Nitrite Negative (Negative); Specific Gravity 1.025 (1.005-1.025); Urobilinogen 0.2 EU/dL (Up TO 0.2); pH 8.5 (5-8)
[2021-10-28 10:18] LABS: ALT 32 U/L (14-59); AST 20 U/L (15-37); Albumin 4.1 g/dL (3.4-5.0); Alkaline Phosphatase 84 U/L (46-116); Anion Gap 7.1 mmol/L (3-11); BUN 10 mg/dL (7-18); Bilirubin, Total 0.4 mg/dL (0.2-1.0); CO2 28.9 mmol/L (21.0-32.0); CREATININE 0.8 mg/dL (0.55-1.02); Chloride 103 mmol/L (98-107); Glucose 89 mg/dL (74-106); Lipase 74 U/L (73-393); Potassium 4.1 mmol/L (3.5-5.1); Sodium 139 mmol/L (136-145); Total Protein 7.4 g/dL (6.4-8.2)
[2021-10-28 10:21] LABS: Epithelial Cells Many HPF (Negative); RBC 0-2 HPF (0-2); WBC >50 HPF (0-5)
[2021-10-28 10:22] LABS: Bacteria Few HPF (Negative); C & S Indicated? No/Sq. Contamination; Casts Negative LPF (Negative); Crystals Negative HPF (Negative); Mucus Trace (Negative)
[2021-10-28] MEDS: Sulfameth/Trimeth DS TAB 1 TAB PO (11:03)
[2021-10-28] MEDS: Ketorolac 30 MG/ML VIAL IVP (11:03)
--- NOTE | 2021-10-28 11:27 | DI.VRAD_ITS ---
PROCEDURE INFORMATION: Exam: US Pelvis Complete, Transabdominal and US Pelvis, Transvaginal Exam date and time: 10/28/2021 10:09 AM Age: 26 years old Clinical indication: Other: Rlq pain since yesterday; Patient HX: Sudden onset rlq pain yesterday; Additional info: Er provider requesting appendix be visualized as well if possible. TECHNIQUE: Imaging protocol: Real-time transabdominal and transvaginal pelvic ultrasound (complete) with image documentation. Transvaginal imaging was used for better evaluation of the endometrium, adnexa, and/or cervix. COMPARISON: 1. SD US OB PAULA WEIGHT 04/17/2019 10:49 AM 2. US OB 2-3 trimester 03/25/2019 10:40 AM FINDINGS: Uterus: Normal uterus 7 x 4.1 x 5.9 cm. Endometrium 13 mm Right ovary/adnexa: Right ovary 4 x 2.2 x 2.1 cm. Peak systolic velocity right ovary 10 cm/s. 18 mm follicle in the right ovary Left ovary/adnexa: Left ovary 2.9 x 1.5 x 2.2 cm. Peak systolic velocity left ovary 10 cm/s Intraperitoneal space: Mild amount of free fluid adjacent to both ovaries Urinary bladder: Normal. Left kidney: No hydronephrosis of either kidney. Left kidney 9.7 cm. Right kidney 10 cm . Appendix: A tubular structure was imaged in the right lower quadrant but it was not demonstrated to be a blind ending tube so appendix cannot be confirmed. If acute appendicitis is suspected clinically, consider CT. IMPRESSION: 1. No hydronephrosis of either kidney. Left kidney 9.7 cm. Right kidney 10 cm . 2. A tubular structure was imaged in the right lower quadrant but it was not demonstrated to be a blind ending tube so appendix cannot be confirmed. If acute appendicitis is suspected clinically, consider CT. 3. Negative pelvic ultrasound Dictated and Authenticated by: Nenita Trinidad MD. Ordering:SUAD Guzmán MD
[2021-10-28 11:43] VITALS: BP 109/59; PULSE 62; RESP 16; TEMP 36.6; O2SAT 99
== END 2021-10-28 11:46 | disposition home or self-care (01) ==
PROVIDERS: Emergency Provider Physician Assistant; PCP Nurse Practitioner
DX: R10.31 Right lower quadrant pain (principal); N39.0 Urinary tract infection, site not specified
CPT/HCPCS: 36415; 80053; 81025; 83690; 96372; 99284; 76830; 76856; 81003; 81015; 85025; J1885

== ENCOUNTER 2021-11-16 12:39 | Outpatient (CLI) | payer MEDICAID, SELFPAY ==
--- NOTE | 2021-11-16 12:00 | DI.RAD_ITS ---
Exam(s) XR TOE RT GREAT EXAM: XR TOE RT GREAT CLINICAL HISTORY: R/O FX - Contusion, S90.129A TECHNIQUE: COMPARISON: CR,XR XR FOOT RT COMPLETE from 04/26/2019 FINDINGS: Three views were obtained. There is no evidence of acute fracture or dislocation. IMPRESSION: RADIATION DOSE DELIVERED: Total DLP
== END 2021-11-16 12:59 ==
PROVIDERS: PCP Nurse Practitioner; Visit Provider Nurse Practitioner
DX: S90.111A Contusion of right great toe without damage to nail, initial encounter
CPT/HCPCS: 73660

== ENCOUNTER 2022-06-06 09:58 | Emergency (ER) | payer MEDICAID, SELFPAY ==
[2022-06-06 10:10] VITALS: BP 131/66; PULSE 83; RESP 16; TEMP 37.1; O2SAT 100
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
[2022-06-06 10:32] LABS: Abs Immature Grans 0.02 10^3/uL (0.0-0.06); Absolute Basophil Count 0.04 10^3/uL (0.0-0.2); Absolute Eosinophil Count 0.25 10^3/uL (0.0-0.7); Absolute Lymphocyte Count 1.85 10^3/uL (1.2-3.4); Absolute Monocyte Count 0.43 10^3/uL (0.1-0.8); Absolute Neutrophil Count 7.73 10^3/uL (1.2-6.7); Basophils % 0.4; Eosinophils % 2.4; HCT 37.6 % (36.0-46.0); HGB 12.9 g/dL (11.2-15.7); Immature Grans % 0.2; Lymphocytes % 17.9; MCH 31.7 pg (27.0-33.0); MCHC 34.3 % (32.0-36.0); MCV 92 fL (80-95); MPV 9.3 fL (8.0-11.0); Monocytes % 4.2; Neutrophils % 74.9; Platelet Count 276 10^3/uL (130-400); RBC 4.07 10^6/uL (3.93-5.22); RDW 12.1 % (11.7-14.6); RDW-SD 41.7 fL; WBC 10.32 10^3/uL (4.4-10.8)
[2022-06-06] MEDS: Normal Saline 1,000 ML 1000 ML IV (10:34)
[2022-06-06] MEDS: Ondansetron 4 MG/2 ML VIAL IVP (10:36)
[2022-06-06] MEDS: MORPHine 10 MG/ML VIAL 4 MG IVP (10:37)
--- NOTE | 2022-06-06 10:45 | DI.CT_ITS ---
Exam(s) CT ABDOMEN PELVIS W EXAM: CT ABDOMEN PELVIS W CLINICAL HISTORY: Lower abd pain TECHNIQUE: Imaging Protocol: Axial computed tomography images with coronal and sagittal reformatted images were created and reviewed CONTRAST MATERIAL: Intravenous: Omnipaque 350 Contrast volume:99 mL Oral: No COMPARISON: CT ABD PELVIS WITH CONTRAST from 01/16/2014 FINDINGS: ABDOMEN: Lung Bases: Normal where visualized. Liver: Normal density. No measurable mass. Portal, Superior Mesenteric, and Splenic Veins: Unremarkable. Gallbladder and Biliary Tract: No radiodense calculus or dilation. Pancreas: Normal density, no abnormal calcifications or inflammatory process. Spleen: Normal. Adrenals: No masses seen. Kidneys: Normal size, contour and axis. No radiodense stones or obstructive uropathy. No masses seen. Abdominal Aorta: Abdominal portion non-dilated. Bowel: No obstruction or bowel wall thickening. Appendix is unremarkable. Peritoneal Cavity: There is a small amount of pelvic ascites. There is also small amount of perihepat ic ascites. No free air. Lymph Nodes: Within normal limits. Bones: Within normal limits for the patient's age. Soft Tissues: Unremarkable. PELVIS: Bladder: Symmetric distention, no gross wall thickening. Reproductive Organs: There is a 1.4 cm peripherally enhancing cyst in the right ovary. This likely re flects a corpus luteal cyst. Reproductive organs are otherwise unremarkable. Lymph Nodes: Within normal limits. Bones: Within normal limits for the patient's age. IMPRESSION: 1. There is a 1.4 cm peripherally enhancing cyst in the right ovary which likely reflects a corpus fernie teal cyst. There is a small amount of free pelvic fluid which is likely physiologic. 2. No other acute abdominal pelvic process. 3. Findings were discussed with the emergency department on 06/06/2022. RADIATION DOSE DELIVERED: Total DLP DATA REPOSITORY: All CT scans at this facility are submitted to the National Radiology Data Registry (NRDR) Dose Index Registry (DIR) with the [employer] (A[employer]). RADIATION OPTIMIZATION: All CT scans at this facility use at least one of these dose optimization te chniques: automated exposure control; mA and/or kV adjustment per patient size (includes targeted exa ms where dose is matched to clinical indication); or iterative reconstruction.
[2022-06-06 10:50] LABS: ALT 15 U/L (14-59); AST 19 U/L (15-37); Albumin 3.9 g/dL (3.4-5.0); Alkaline Phosphatase 80 U/L (46-116); Anion Gap 6.3 mmol/L (3-11); BUN 11 mg/dL (7-18); Bilirubin, Total 0.5 mg/dL (0.2-1.0); CO2 27.7 mmol/L (21.0-32.0); Calcium 8.9 mg/dL (8.5-10.1); Chloride 104 mmol/L (98-107); Estimated GFR 80.18 (mL/min/1.73m2); Glucose 81 mg/dL (74-106); Lipase 44 U/L (73-393); Potassium 3.6 mmol/L (3.5-5.1); Sodium 138 mmol/L (136-145); Total Protein 7.1 g/dL (6.4-8.2)
[2022-06-06 11:10] LABS: Bilirubin Negative (Negative); Blood Negative (Negative); Clarity Clear (Clear); Glucose Negative (Negative); Ketones 15 mg/dL (Negative); Leukocyte Esterase Negative (Negative); Nitrite Negative (Negative); Specific Gravity 1.025 (1.005-1.025); Urobilinogen 0.2 EU/dL (Up TO 0.2)
[2022-06-06] MEDS: Ketorolac 15 MG/ML VIAL IVP (11:35)
[2022-06-06] MEDS: Normal Saline - Diluent 50 ML VIAL IJ (12:00)
[2022-06-06] MEDS: Omnipaque 350 MG/ML 500 ML BTL-Imaging package 100 ML IJ (12:01)
[2022-06-06] MEDS: Normal Saline Flush 10 ML SYR IVP (12:02)
[2022-06-06 12:45] VITALS: BP 95/52; PULSE 66; RESP 18; TEMP 36.4; O2SAT 100
== END 2022-06-06 13:11 | disposition home or self-care (01) ==
PROVIDERS: Emergency Provider Registered Nurse Emergency; PCP Nurse Practitioner Family
DX: N83.201 Unspecified ovarian cyst, right side (principal); F17.210 Nicotine dependence, cigarettes, uncomplicated
CPT/HCPCS: 36415; 80053; 81025; 83690; 96361; 96374; 96375; 99285; 74177; 81003; 83735; 85025; 99284; J1885; J2270; J2405

== ENCOUNTER 2022-06-07 15:07 | Emergency (ER) | payer MEDICAID, SELFPAY ==
[2022-06-07 15:17] VITALS: BP 110/55; PULSE 99; RESP 16; TEMP 37.1; O2SAT 98
[2022-06-07 16:05] LABS: Abs Immature Grans 0.02 10^3/uL (0.0-0.06); Absolute Basophil Count 0.02 10^3/uL (0.0-0.2); Absolute Eosinophil Count 0.24 10^3/uL (0.0-0.7); Absolute Lymphocyte Count 0.96 10^3/uL (1.2-3.4); Absolute Monocyte Count 0.57 10^3/uL (0.1-0.8); Absolute Neutrophil Count 9.43 10^3/uL (1.2-6.7); Basophils % 0.2; Eosinophils % 2.1; HCT 34.1 % (36.0-46.0); HGB 11.6 g/dL (11.2-15.7); Immature Grans % 0.2; Lymphocytes % 8.5; MCH 31.9 pg (27.0-33.0); MCV 94 fL (80-95); MPV 9.2 fL (8.0-11.0); Monocytes % 5.1; Neutrophils % 83.9; Platelet Count 245 10^3/uL (130-400); RBC 3.64 10^6/uL (3.93-5.22); RDW 12.1 % (11.7-14.6); RDW-SD 42.1 fL; WBC 11.24 10^3/uL (4.4-10.8)
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
[2022-06-07] MEDS: ACETAMINOPHEN 1,000 MG/100 ML BTL 400 MG IVPB (16:08)
[2022-06-07] MEDS: HYDROmorphone 2 MG/ML SYR 0.5 MG IVP ×2 (16:09→18:05)
[2022-06-07] MEDS: Ketorolac 15 MG/ML VIAL IVP (16:09)
[2022-06-07] MEDS: Normal Saline 1,000 ML 1000 ML IV (16:09)
[2022-06-07 16:19] LABS: ALT 15 U/L (14-59); AST 14 U/L (15-37); Albumin 3.7 g/dL (3.4-5.0); Alkaline Phosphatase 75 U/L (46-116); Anion Gap 6.8 mmol/L (3-11); BUN 11 mg/dL (7-18); Bilirubin, Total 0.5 mg/dL (0.2-1.0); CO2 26.2 mmol/L (21.0-32.0); CREATININE 0.9 mg/dL (0.55-1.02); Calcium 8.6 mg/dL (8.5-10.1); Chloride 104 mmol/L (98-107); Estimated GFR 90.98 (mL/min/1.73m2); Glucose 112 mg/dL (74-106); Lipase 48 U/L (73-393); Magnesium 1.9 mg/dL (1.8-2.4); Potassium 3.5 mmol/L (3.5-5.1); Sodium 137 mmol/L (136-145); Total Protein 6.8 g/dL (6.4-8.2)
[2022-06-07 17:16] LABS: Bilirubin Negative (Negative); Blood Negative (Negative); Clarity Clear (Clear); Glucose Negative (Negative); Ketones 15 mg/dL (Negative); Leukocyte Esterase Negative (Negative); Nitrite Negative (Negative); Specific Gravity 1.025 (1.005-1.025)
--- NOTE | 2022-06-07 19:09 | DI.CT_ITS ---
Exam(s) CT PELVIC W EXAM: CT PELVIC W CLINICAL HISTORY: RLQ pain worsening TECHNIQUE: COMPARISON: CT CT ABDOMEN PELVIS W from 06/06/2022 FINDINGS: CT examination of the pelvis was performed with intravenous infusion of 50 cc of Omnipaque 350. Visualized inferior portions of the liver, pancreas, and kidneys are unremarkable. Appendix is jenae l. No lymphadenopathy. No abdominal wall hernia of the lower abdominal wall. Urinary bladder is unremarkable. Appendix is normal. No evidence of bowel obstruction. There is moderate free fluid in the pelvis. There is a partially collapsed right ovarian cyst, consi adriano recently ruptured cyst. Other etiologies of free pelvic fluid including inflammatory process not excluded on this examination. IMPRESSION: No evidence of appendicitis. Free fluid in the pelvis which is nonspecific but which may be secondar y to ruptured right ovarian cyst. Inflammatory process not excluded on this examination. Additional evaluation with pelvic ultrasound may be considered. RADIATION DOSE DELIVERED: Total DLP DATA REPOSITORY: All CT scans at this facility are submitted to the National Radiology Data Registry (NRDR) Dose Index Registry (DIR) with the [employer] (ACR). RADIATION OPTIMIZATION: All CT scans at this facility use at least one of these dose optimization te chniques: automated exposure control; mA and/or kV adjustment per patient size (includes targeted exa ms where dose is matched to clinical indication); or iterative reconstruction.
[2022-06-07] MEDS: Omnipaque 350 MG/ML 100 ML BTL IJ (19:44)
[2022-06-07] MEDS: Normal Saline - Diluent 50 ML VIAL IJ (19:44)
[2022-06-07] MEDS: Normal Saline Flush 10 ML SYR IVP (19:45)
--- NOTE | 2022-06-07 19:58 | DI.VRAD_ITS ---
PROCEDURE INFORMATION: Exam: CT Pelvis With Contrast Exam date and time: 06/07/2022 7:42 PM Age: 27 years old Clinical indication: Other: Rlq pain worsening TECHNIQUE: Imaging protocol: Computed tomography of the pelvis with contrast. Contrast material: OMNIPAQUE 350; Contrast volume: 50 ml; Contrast route: INTRAVENOUS (IV); COMPARISON: CT ABDOMEN PELVIS W 06/06/2022 11:58 AM FINDINGS: Stomach and bowel: Visualized small bowel and colon are unremarkable. Appendix: No evidence of appendicitis. Intraperitoneal space: Minimal/small cul-de-sac fluid No free air. No significant fluid collection. Lymph nodes: Unremarkable. No enlarged lymph nodes. Urinary bladder: Normal. No mass. Reproductive: Partially collapsed right ovarian cyst measuring 1.5 cm. Bones/joints: Unremarkable. No acute fracture. No dislocation. Soft tissues: Unremarkable. IMPRESSION: Recently ruptured right ovarian cyst with minimal pelvic fluid No CT evidence for appendicitis Dictated and Authenticated by: Riley Koo MD. Ordering:KRIS Hampton MD
--- NOTE | 2022-06-07 20:26 | NUR.NOTE ---
Referral faxed to [facility] to f/u the week of 06/11/22 for Ovarian Cyst.Nursing Note:
== END 2022-06-07 20:33 | disposition home or self-care (01) ==
PROVIDERS: Emergency Provider Nurse Practitioner Family; PCP Nurse Practitioner Family
DX: N83.201 Unspecified ovarian cyst, right side (principal); D72.829 Elevated white blood cell count, unspecified; F17.210 Nicotine dependence, cigarettes, uncomplicated
CPT/HCPCS: 80053; 81025; 83690; 87491; 87591; 96365; 96366; 96375; 96376; 99285; 72193; 81003; 83735; 85025; 87480; 87510; 87660; 99284; J0131; J1170; J1885; J3490

== ENCOUNTER 2023-01-05 20:47 | Emergency (ER) | payer MEDICAID, SELFPAY ==
--- NOTE | 2023-01-05 20:45 | DI.RAD_ITS ---
Exam(s) XR HAND RT COMPLETE EXAM: XR HAND RT COMPLETE CLINICAL HISTORY: trauma. TECHNIQUE: 2D digital imaging was performed. Three views. COMPARISON: No exams were available for comparison FINDINGS: BONES: No acute fracture is present. No bony destructive lesion is seen. JOINTS: No dislocation present. SOFT TISSUE: Posterior swelling over metacarpal region. IMPRESSION: Soft tissue swelling. DATA REPOSITORY: RADIATION DOSE DELIVERED:
[2023-01-05 20:51] VITALS: BP 113/73; PULSE 86; RESP 16; TEMP 36.6; O2SAT 98
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
--- NOTE | 2023-01-05 21:30 | DI.VRAD_ITS ---
PROCEDURE INFORMATION: Exam: XR Right Hand Exam date and time: 01/05/2023 9:07 PM Age: 27 years old Clinical indication: Pain; Hand; Right; Patient HX: Trauma TECHNIQUE: Imaging protocol: Radiologic exam of the right hand. Views: 3 or more views. COMPARISON: No relevant prior studies available. FINDINGS: Bones/joints: No displaced fractures or dislocations. Soft tissues: Grossly unremarkable. IMPRESSION: No acute findings. Dictated and Authenticated by: Bebo Hill MD. Ordering:ANNE Mendez MD
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
== END 2023-01-05 22:05 | disposition home or self-care (01) ==
PROVIDERS: Emergency Provider Emergency Medicine; PCP Nurse Practitioner Family
DX: S60.221A Contusion of right hand, initial encounter (principal); W22.8XXA Striking against or struck by other objects, initial encounter
CPT/HCPCS: 29125; 99283; 73130

== ENCOUNTER 2023-01-07 17:55 | Emergency (ER) | payer MEDICAID, SELFPAY ==
[2023-01-07 18:04] VITALS: BP 115/87; PULSE 90; RESP 18; TEMP 36.8; O2SAT 100
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
--- NOTE | 2023-01-07 19:30 | DI.RAD_ITS ---
Exam(s) XR WRIST RT COMPLETE EXAM: XR WRIST RT COMPLETE CLINICAL HISTORY: pain s/p punching object 2 days ago. TECHNIQUE: 2D digital imaging was performed. Three views. COMPARISON: No exams were available for comparison FINDINGS: BONES: No acute fracture is present. No bony destructive lesion is seen. JOINTS: The carpal bones are normally aligned. SOFT TISSUE: Normal. IMPRESSION: Unremarkable radiographs of the right wrist. DATA REPOSITORY: RADIATION DOSE DELIVERED:
--- NOTE | 2023-01-07 19:30 | DI.RAD_ITS ---
Exam(s) XR HUMERUS RT EXAM: XR HUMERUS RT CLINICAL HISTORY: pain s/p punching object 2 days ago. TECHNIQUE: 2D digital imaging was performed. COMPARISON: No exams were available for comparison FINDINGS: BONES: No acute fracture is present. No bony destructive lesion is seen. Visualized portion of elbow and shoulder joints are unremarkable. SOFT TISSUE: Normal. IMPRESSION: Unremarkable radiographs of the right humerus. DATA REPOSITORY: RADIATION DOSE DELIVERED:
--- NOTE | 2023-01-07 19:30 | DI.RAD_ITS ---
Exam(s) XR FOREARM RT EXAM: XR FOREARM RT CLINICAL HISTORY: pain s/p fall. TECHNIQUE: 2D digital imaging was performed. Two views. COMPARISON: CR,XR XR HUMERUS RT from 01/07/2023 FINDINGS: BONES: No acute fracture is present. No bony destructive lesion is seen. Visualized portion of elbow and wrist joints are unremarkable. SOFT TISSUE: Normal. IMPRESSION: Unremarkable radiographs of the left forearm. DATA REPOSITORY: RADIATION DOSE DELIVERED:
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
[2023-01-07] MEDS: Ibuprofen 600 MG TAB PO (19:42)
--- NOTE | 2023-01-07 21:09 | DI.VRAD_ITS ---
PROCEDURE INFORMATION: Exam: XR Right Humerus Exam date and time: 01/07/2023 7:56 PM Age: 27 years old Clinical indication: Upper arm; Right; Patient HX: Pain after punching object 2 days ago TECHNIQUE: Imaging protocol: Radiologic exam of the right humerus. Views: 2 or more views. COMPARISON: No relevant prior studies available. FINDINGS: Bones/joints: Normal. Soft tissues: Normal. IMPRESSION: No acute findings. Dictated and Authenticated by: Riley Koo MD. Ordering:JAZMINE Herrera MD
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
--- NOTE | 2023-01-07 21:10 | DI.VRAD_ITS ---
PROCEDURE INFORMATION: Exam: XR Right Forearm Exam date and time: 01/07/2023 8:01 PM Age: 27 years old Clinical indication: Lower or forearm; Right; Patient HX: Pain after punching object 2 days ago TECHNIQUE: Imaging protocol: Radiologic exam of the right forearm. Views: 2 views. COMPARISON: CR XR HAND RT COMPLETE 01/05/2023 9:07 PM FINDINGS: Bones/joints: Normal. Soft tissues: Normal. IMPRESSION: No acute findings. Dictated and Authenticated by: Riley Koo MD. Ordering:JAZMINE Herrera MD
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
== END 2023-01-07 21:56 | disposition home or self-care (01) ==
PROVIDERS: Emergency Provider Emergency Medicine; PCP Nurse Practitioner Family
DX: M79.601 Pain in right arm (principal); S50.11XA Contusion of right forearm, initial encounter; W22.03XA Walked into furniture, initial encounter
CPT/HCPCS: 99284; 73060; 73090; 73110; 73130; 99283

== ENCOUNTER 2023-12-27 09:38 | Emergency (ER) | payer MEDICAID, SELFPAY ==
[2023-12-27 09:40] VITALS: BP 100/66; PULSE 89; RESP 16; TEMP 36.9; O2SAT 100
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
== END 2023-12-27 10:12 | disposition home or self-care (01) ==
LOC: ER 10:14
PROVIDERS: Emergency Provider Physician Assistant; PCP Nurse Practitioner Family
DX: M79.675 Pain in left toe(s) (principal); L03.032 Cellulitis of left toe
CPT/HCPCS: 99283

== ENCOUNTER 2024-03-25 17:46 | Emergency (ER) | payer MEDICAID, SELFPAY ==
[2024-03-25 17:58] VITALS: BP 123/88; PULSE 95; RESP 14; TEMP 37.2; O2SAT 98
--- NOTE | 2024-03-25 18:00 | RT.EKG_ITS ---
APPROVED REPORT Exam: Resting ECG Reason for Exam: SOB Patient Location: E HR:88 bpm ECG Measurements Heart Rate 88 AXIS ID 108 P 74 QRSd 78 QRS 70 QT 359 T -76 QTc 434 Conclusion Sinus rhythm...normal P axis, V-rate 60- 99 Repol abnrm suggests ischemia, diffuse leads...ST-T neg, ant/lat/inf ST changes are likely electrolyte related. Normal axis and interval
--- NOTE | 2024-03-25 18:00 | DI.RAD_ITS ---
Exam(s) XR CHEST 2V PA LATERAL EXAM: XR CHEST 2V PA LATERAL CLINICAL HISTORY: Chest Pain SOB TECHNIQUE: 2D digital imaging was performed of the chest. Two images were obtained. PA and lateral views were obtained. COMPARISON: No exams were available for comparison FINDINGS: MEDIASTINUM: Normal. HEART: Normal. PULMONARY VASCULATURE: Normal. LUNGS: Clear. PLEURAL SPACE: No pleural effusion or pneumothorax. BONE:Within normal limits for the patient's age. There is a right convex thoracic scoliosis. OTHER FINDINGS:Normal. IMPRESSION: No acute pulmonary findings. DATA REPOSITORY: RADIATION DOSE DELIVERED:
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
[2024-03-25 18:19] LABS: Abs Immature Grans 0.03 10^3/uL (0.0-0.06); Absolute Basophil Count 0.05 10^3/uL (0.0-0.2); Absolute Eosinophil Count 0.31 10^3/uL (0.0-0.7); Absolute Lymphocyte Count 2.73 10^3/uL (1.2-3.4); Absolute Monocyte Count 0.45 10^3/uL (0.1-0.8); Basophils % 0.6 %; Eosinophils % 3.5 %; HCT 39.1 % (36.0-46.0); HGB 13.3 g/dL (11.2-15.7); Immature Grans % 0.3 %; Lymphocytes % 30.4 %; MCH 32.4 pg (27.0-33.0); MCV 95 fL (80-95); MPV 8.8 fL (8.0-11.0); Neutrophils % 60.2 %; Platelet Count 321 10^3/uL (130-400); RBC 4.11 10^6/uL (3.93-5.22); RDW 12.2 % (11.7-14.6); RDW-SD 42.7 fL; WBC 8.97 10^3/uL (4.4-10.8)
[2024-03-25 18:33] VITALS: RESP 18
[2024-03-25 18:42] LABS: Bilirubin Negative (Negative); Blood Negative (Negative); Clarity Clear (Clear); Glucose Negative (Negative); Ketones Negative (Negative); Leukocyte Esterase Negative (Negative); Nitrite Negative (Negative); Specific Gravity 1.015 (1.005-1.025); Urobilinogen 0.2 mg/dL (Up to 0.2)
[2024-03-25 18:53] LABS: ALT 17 U/L (14-59); AST 17 U/L (15-37); Albumin 4.3 g/dL (3.4-5.0); Alkaline Phosphatase 84 U/L (46-116); Anion Gap 8.8 mmol/L (3-11); BUN 6 mg/dL (7-18); CO2 27.2 mmol/L (21.0-32.0); CREATININE 0.9 mg/dL (0.55-1.02); Calcium 9.7 mg/dL (8.5-10.1); Chloride 104 mmol/L (98-107); Estimated GFR 89.86 (mL/min/1.73m2); Glucose 100 mg/dL (74-106); Potassium 3.3 mmol/L (3.5-5.1); Sodium 140 mmol/L (136-145); Total Protein 7.3 g/dL (6.4-8.2); Troponin I 4 ng/L (<or=51)
[2024-03-25 18:54] LABS: D-Dimer 210 ng/mlFEU (<500)
[2024-03-25 19:04] LABS: *AMPHETAMINES SCREEN URINE Negative (Negative); *BARBITURATES SCREEN URINE Negative (Negative); *BENZODIAZEPINES SCREEN URINE Negative (Negative); Cannabinoids THC Positive (Negative); Cocaine Screen,Urine Negative (Negative); METHADONE URINE SCREEN Negative (Negative); OPIATES URINE SCREEN Negative (Negative)
[2024-03-25 19:07] LABS: Tricyclic Antidepressants Negative (Negative)
[2024-03-25] MEDS: Potassium Chloride Liquid 20 MEQ PKT 40 MEQ PO (19:48)
[2024-03-25] MEDS: Normal Saline 1,000 ML 1000 ML IV (19:48)
[2024-03-25] MEDS: Ketorolac 15 MG/ML VIAL IVP (19:48)
--- NOTE | 2024-03-25 19:59 | DI.VRAD_ITS ---
PROCEDURE INFORMATION: Exam: XR Chest Exam date and time: 03/25/2024 6:59 PM Age: 29 years old Clinical indication: Shortness of breath TECHNIQUE: Imaging protocol: Radiologic exam of the chest. Views: 2 views. COMPARISON: CR XR HUMERUS RT 01/07/2023 7:56 PM FINDINGS: Lungs: Unremarkable. No consolidation. Pleural spaces: Unremarkable. No pleural effusion. No pneumothorax. Heart/Mediastinum: Unremarkable. No cardiomegaly. Bones/joints: Unremarkable. IMPRESSION: No acute findings. Dictated and Authenticated by: Mauro Barrera MD. Ordering:SAUL Fierro MD
[2024-03-25 21:03] VITALS: BP 128/67; PULSE 86; RESP 12; O2SAT 98
== END 2024-03-25 21:05 | disposition home or self-care (01) ==
LOC: ER 20:10 → RED 21:05
PROVIDERS: Emergency Provider Registered Nurse Emergency; PCP Nurse Practitioner Family
DX: R00.2 Palpitations (principal); R07.9 Chest pain, unspecified; M94.0 Chondrocostal junction syndrome [Tietze]; F17.210 Nicotine dependence, cigarettes, uncomplicated
CPT/HCPCS: 36415; 80053; 80307; 81025; 93005; 96361; 96374; 99285; 71046; 81003; 83735; 84484; 85025; 85379; 93010; 99284; J1885

== ENCOUNTER 2024-07-17 10:39 | Emergency (ER) | payer MEDICAID, SELFPAY ==
[2024-07-17 10:41] VITALS: BP 114/78; PULSE 98; RESP 12; TEMP 37.1; O2SAT 99
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
== END 2024-07-17 12:05 | disposition home or self-care (01) ==
PROVIDERS: Emergency Provider Physician Assistant; PCP Nurse Practitioner Family
DX: M54.9 Dorsalgia, unspecified (principal); F17.210 Nicotine dependence, cigarettes, uncomplicated
CPT/HCPCS: 99283

== ENCOUNTER 2024-08-02 10:26 | Emergency (ER) | payer MEDICAID, SELFPAY ==
[2024-08-02 10:33] VITALS: BP 115/82; PULSE 92; RESP 16; TEMP 36.6; O2SAT 97
[2024-08-02 10:37] VITALS: BP 115/82; PULSE 92; RESP 16; TEMP 36.6; O2SAT 97
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
[2024-08-02] MEDS: Ketorolac 15 MG/ML VIAL IM (10:57)
[2024-08-02] MEDS: Penicillin V POTASSIUM 500 MG TAB PO (10:58)
== END 2024-08-02 11:09 | disposition home or self-care (01) ==
PROVIDERS: Emergency Provider Nurse Practitioner Family; PCP Nurse Practitioner Family
DX: R68.84 Jaw pain (principal); K04.7 Periapical abscess without sinus; K02.9 Dental caries, unspecified
CPT/HCPCS: 99283; J1885

== ENCOUNTER 2024-12-31 10:13 | Emergency (ER) | payer MEDICAID, SELFPAY ==
[2024-12-31 10:20] VITALS: BP 143/91; PULSE 98; RESP 16; TEMP 36.8; O2SAT 98
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
[2024-12-31] MEDS: Acetaminophen 500 MG TAB 1000 MG PO (10:41)
[2024-12-31] MEDS: Ibuprofen 400 MG TAB PO (10:41)
--- NOTE | 2024-12-31 11:09 | DI.RAD_ITS ---
Exam(s) XR TOE RT GREAT XR FOOT RT COMPLETE EXAM: XR FOOT RT COMPLETE and XR toe RT great CLINICAL HISTORY: R toe pain, spreads proximally up the foot. TECHNIQUE: 2D digital imaging was performed of the right great toe and foot. Six images were obtained. AP, oblique and lateral views were obtained. COMPARISON: CR,XR XR FOOT RT COMPLETE from 04/26/2019 CR XR TOE RT GREAT from 11/16/2021 FINDINGS: BONES: There is an acute nondisplaced intra-articular fracture involving the head of the proximal phalanx of the great toe. This is best appreciated on the lateral view of the foot. No bony destructive lesion is seen. JOINTS: No dislocation present. SOFT TISSUE: Normal. IMPRESSION: Acute nondisplaced intra-articular fracture involving the head of the proximal phalanx of the great toe. DATA REPOSITORY: RADIATION DOSE DELIVERED:
== END 2024-12-31 12:30 | disposition home or self-care (01) ==
PROVIDERS: Emergency Provider Physician Assistant; PCP Nurse Practitioner Family
DX: S92.414A Nondisplaced fracture of proximal phalanx of right great toe, initial encounter for closed fracture (principal); F17.210 Nicotine dependence, cigarettes, uncomplicated; W51.XXXA Accidental striking against or bumped into by another person, initial encounter; Y93.89 Activity, other specified
CPT/HCPCS: 99283; 73630; 73660

== ENCOUNTER 2025-04-01 04:09 | Outpatient (CLI) | payer MEDICAID, SELFPAY ==
--- NOTE | 2025-04-01 05:45 | DI.US_ITS ---
Exam(s) US SOFT TISSUE EXTREMITY EXAM: US SOFT TISSUE EXTREMITY CLINICAL HISTORY: lump lateral lower Right leg,R22.9. TECHNIQUE: Ultrasound was performed using standard protocol. COMPARISON: No exams were available for comparison FINDINGS: Sonographic assessment utilizing grayscale and color Doppler imaging was performed and targeted to the area of clinical concern. There is a 0.4 x 0.5 x 0.4 cm subcutaneous complex cystic nodule corresponding to the palpable abnormality. There does appear to be a communication with the skin surface. The nodules avascular. This likely reflects a sebaceous cyst. IMPRESSION: DATA REPOSITORY:
== END 2025-04-01 04:29 ==
LOC: DI 04:09
PROVIDERS: PCP Nurse Practitioner Family; Visit Provider Nurse Practitioner Family
DX: R22.41 Localized swelling, mass and lump, right lower limb (principal)
CPT/HCPCS: 76881

== ENCOUNTER 2025-04-15 13:11 | Outpatient (RCR) | payer MEDICAID, SELFPAY | END 2025-05-14 23:59 | disposition home or self-care (01) | LOC: CARDOPNVT 13:11 | PROVIDERS: PCP Nurse Practitioner Family; Visit Provider Internal Medicine Cardiovascular Disease | DX: R00.2 Palpitations (principal); R07.9 Chest pain, unspecified; I47.20 Ventricular tachycardia, unspecified | CPT/HCPCS: 93225; 93226 ==

== ENCOUNTER 2025-05-03 10:28 | Outpatient (REF) | payer MEDICAID, SELFPAY ==
--- NOTE | 2025-05-03 10:04 | SKI_PTH ---
PATIENT: Fadia Meeks LOC: [facility] U#:[id number] AGE/SX: 30/F ROOM: RE05/03/[address]: Mechelle Delaney : 1995 BED: DIS: 05/03/2025 SPEC #: [id number] RECD: 05/03/25 18:15 STATUS: CLAUDIA REQ #: [id number] PIPO: 05/03/25 10:[address]: Mechelle Delaney DEPT: Surgical Specimen RECD BY: Olivia Page ENTERED: 05/03/25 18:15 SP TYPE: OTIS WYNN DR: Karen Turpin, POUNCING LATHE OPERATOR Tissues: 1 - SKIN BIOPSY(SHAVE/PUNCH) Procedures: GROSS AND MICRO LEVEL 3 Comments: [id number]
== END 2025-05-03 10:29 | disposition home or self-care (01) ==
LOC: LBN 10:28
PROVIDERS: PCP Nurse Practitioner Family; Referring Provider Student in an Organized Health Care Education/Training Program; Visit Provider Student in an Organized Health Care Education/Training Program
DX: L72.9 Follicular cyst of the skin and subcutaneous tissue, unspecified (principal)
CPT/HCPCS: 88304; 88305